=== PATIENT | male | born 1985 | race Caucasian/White ===

== ENCOUNTER 2016-08-02 12:49 | Outpatient (CLI) | payer MEDICAID | END 2016-08-02 12:50 | disposition home or self-care (01) | DX: M25.473 Effusion, unspecified ankle (principal) ==

== ENCOUNTER 2016-08-02 14:25 | Outpatient (CLI) | payer MEDICAID | END 2016-08-02 14:26 | disposition home or self-care (01) | DX: M25.471 Effusion, right ankle (principal) ==

== ENCOUNTER 2016-08-19 21:07 | Outpatient (CLI) | payer MEDICAID | END 2016-08-19 21:08 | disposition EMS.NT | DX: R56.9 Unspecified convulsions (principal); S00.81XA Abrasion of other part of head, initial encounter ==

== ENCOUNTER 2016-08-19 22:06 | Emergency (ER) | payer MEDICAID ==
[2016-08-20] MEDS ORDERED: IPRATROPIUM/ALBUTEROL 3 ML NEB INH STA (00:05)
[2016-08-20] MEDS ORDERED: DEXAMETHASONE 10 MG/ML VIAL PO STA (00:05)
[2016-08-20] MEDS ORDERED: CHERRY SYRUP 10 ML UDC PO ONE (00:17)
[2016-08-20] MEDS ORDERED: DEXAMETHASONE 10 MG/ML VIAL ONE (00:17)
== END 2016-08-20 00:34 | disposition home or self-care (01) ==
DX: S01.81XA Laceration without foreign body of other part of head, initial encounter (principal); W18.39XA Other fall on same level, initial encounter; Y92.019 Unspecified place in single-family (private) house as the place of occurrence of the external cause; G40.909 Epilepsy, unspecified, not intractable, without status epilepticus; H66.002 Acute suppurative otitis media without spontaneous rupture of ear drum, left ear; R62.50 Unspecified lack of expected normal physiological development in childhood
CPT/HCPCS: 12013; 99282; 99283; 99284; A9270

== ENCOUNTER 2016-08-20 09:44 | Emergency (ER) | payer MEDICAID ==
[2016-08-20] MEDS ORDERED: LORazepam 0.5 MG TABLET PO STA (10:01)
[2016-08-20] MEDS ORDERED: LORazepam 0.5 MG TABLET ONE (10:03)
== END 2016-08-20 11:10 | disposition home or self-care (01) ==
DX: S01.81XA Laceration without foreign body of other part of head, initial encounter (principal); W18.39XA Other fall on same level, initial encounter

== ENCOUNTER 2016-09-02 14:45 | Outpatient (CLI) | payer MEDICAID | END 2016-09-02 14:46 | disposition home or self-care (01) | DX: M25.473 Effusion, unspecified ankle (principal) ==

== ENCOUNTER 2016-12-13 05:45 | Day surgery (SDC) | payer MEDICAID ==
[2016-12-13] MEDS ORDERED: ceFAZolin 2 GM/50 ML 50 ML IV ONE (06:27)
[2016-12-13] MEDS ORDERED: LACTATED RINGERS 1,000 ML IV ONE (06:32)
[2016-12-13] MEDS ORDERED: MIDAZOLAM 10 MG/5 ML UDC PO STA (07:44)
[2016-12-13] MEDS ORDERED: BUPIVACAINE 0.5% PF 30 ML VIAL INFIL ONE ×2 (08:07)
[2016-12-13] MEDS ORDERED: ePHEDrine 50 MG/ML VIAL IVP ONE (08:40)
[2016-12-13] MEDS ORDERED: LIDOCAINE-MPF 2% 5 ML VIAL IM ONE (08:40)
[2016-12-13] MEDS ORDERED: fentaNYL 100 MCG/2 ML VIAL IVP ONE (08:40)
[2016-12-13] MEDS ORDERED: PROPOFOL 200 MG/20 ML VIAL IVP ONE (08:40)
[2016-12-13] MEDS ORDERED: ONDANSETRON 4 MG/2 ML VIAL IVP ONE (08:40)
[2016-12-13] MEDS ORDERED: NEOSTIGMINE 1 MG/1 ML 10 ML MDV IVP ONE (08:40)
[2016-12-13] MEDS ORDERED: ROCURONIUM 50 MG/5 ML VIAL IVP ONE (08:40)
[2016-12-13] MEDS ORDERED: GLYCOPYRROLATE 1 MG/5 ML VIAL IVP ONE (08:40)
[2016-12-13 10:02] VITALS: BP 121/82
--- NOTE | 2016-12-14 07:51 | OPERATIVE REPORT ---
DATE OF SURGERY: 12/13/2016 00:00:00 PREOPERATIVE DIAGNOSIS: Perianal mass. POSTOPERATIVE DIAGNOSIS: Perianal mass. NAME OF PROCEDURE: Excision perianal mass. 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 The mass was noted to be located in the 12-o'clock position. The patient was subseque ntly scheduled for an elective excision of the perianal mass. FINDINGS: After obtaining informed consent from the patient's electrical fitter, as the patient was unable t o provide consent for himself, he was brought into the operating room and intubated by Anesthesia. H e was then positioned in the prone position, 2 grams of Ancef were administered, he was then prepped and draped in the usual sterile fashion, and a timeout was taken according to protocol. The perianal mass was noted to be in the 12-o'clock position, just above the gluteal cleft. It was noted to be a pproximately 1.5 x 1 cm in dimension. It was soft and nonfluctuant and nonerythematous. An elliptical incision was created around the mass and deepened down to the presacral fascia. The en tire cyst was completely removed. The area was then palpated for any residual tissue, and an additio nal small amount of tissue was excised off the presacral fascia. After ensuring complete excision of the mass, the cavity was irrigated, hemostasis was achieved with electrocautery. The incision was t hen closed with 3-0 Vicryl in the subcutaneous tissue and 4-0 Vicryl for the skin. Mastisol and Ster i-Strips were applied. A dry dressing was then applied. The patient was extubated and taken to the recovery room in stable condition. ESTIMATED BLOOD LOSS: None. SPECIMENS: Perianal mass. COMPLICATIONS: None. JOB #: [id number] [id number] JOB #:[id number]
== END 2016-12-13 05:46 | disposition home or self-care (01) ==
LOC: SDS 05:45
PROVIDERS: ATTEND Surgery
PROC: 0JB90ZZ Excision of Buttock Subcutaneous Tissue and Fascia, Open Approach (ICD-10-PCS; principal; 2016-12-13 07:30)
DX: K62.9 Disease of anus and rectum, unspecified (principal); G40.909 Epilepsy, unspecified, not intractable, without status epilepticus; F84.9 Pervasive developmental disorder, unspecified; J30.2 Other seasonal allergic rhinitis
CPT/HCPCS: 46922; A9270; J0690; J7120; 88305

== ENCOUNTER 2017-01-07 13:37 | Outpatient (CLI) | payer MEDICAID ==
--- NOTE | 2017-01-07 15:27 | XRAY Report ---
THREE-VIEW RIGHT ANKLE: 01/07/2017 CLINICAL INDICATION: Effusion. COMPARISON: 09/02/2016 FINDINGS: AP, lateral, oblique views of the right ankle demonstrate a moderate joint effusion. Late ral soft tissue swelling persists. A tiny avulsion fragment is now seen adjacent to the fibula. IMPRESSION: TINY FIBULAR AVULSION FRACTURE. SOFT TISSUE SWELLING AND EFFUSION. JOB #: [id number] EXT JOB #:[id number]
== END 2017-01-07 13:38 | disposition home or self-care (01) ==
LOC: DI.N 13:37
PROVIDERS: ATTEND Physician Assistant
DX: M25.471 Effusion, right ankle (principal); S82.831A Other fracture of upper and lower end of right fibula, initial encounter for closed fracture

== ENCOUNTER 2017-01-11 06:33 | Day surgery (SDC) | payer MEDICAID ==
[2017-01-11] MEDS ORDERED: ePHEDrine 50 MG/ML AMP IVP ONE (07:56)
[2017-01-11] MEDS ORDERED: ONDANSETRON 4 MG/2 ML VIAL IVP ONE (07:56)
[2017-01-11] MEDS ORDERED: KETOROLAC 30 MG/ML VIAL IVP ONE (07:56)
[2017-01-11] MEDS ORDERED: PHENYLEPHRINE 10 MG/ML VIAL IV ONE (07:56)
[2017-01-11] MEDS ORDERED: MIDAZOLAM 10 MG/5 ML UDC PO ONE (08:00)
[2017-01-11] MEDS ORDERED: LACTATED RINGERS 1,000 ML IV ONE ×2 (08:03→09:00)
[2017-01-11] MEDS ORDERED: BUPIVACAINE 0.5%-EPI 1:200000 PF 30 ML VIAL SUBQ ONE (08:22)
[2017-01-11 09:33] VITALS: BP 102/85
--- NOTE | 2017-01-11 22:27 | OPERATIVE REPORT ---
DATE OF SURGERY: 01/11/2017 00:00:00 PREOPERATIVE DIAGNOSIS: Nonhealing wound, buttocks. POSTOPERATIVE DIAGNOSIS: Nonhealing wound, buttocks. PROCEDURE: Incision, drainage, and debridement of nonhealing wound, buttocks. OPERATING SURGEON: Mac Teran MD ANESTHESIA: General mask anesthesia. INDICATION FOR PROCEDURE: Patient is a 31-year-old male who underwent excision of a fibrous tissue i n the cleft of the buttocks approximately 4 weeks ago. He is now having drainage. The area is swollen. There is no erythema, but infection cannot be ruled out. FINDINGS AT PROCEDURE: Patient had a nonhealing wound in the buttocks with debris and serous fluid i n the center of the wound. There appeared to be no purulent fluid. Cultures were sent. PROCEDURE: Informed consent was obtained from his power of legal department manager. Patient was then taken to the operating room, and general mask anesthesia was administered. The patient was then placed in a right lateral decubitus position. The patient's buttocks were then prepped and draped in the usual steril e fashion. The skin overlying the affected area was then injected with 0.25% Marcaine. An incision was then made through the previous incision that was used to excise the fibrous nodule. The incision was then deepened down to the cavity. There was debris and clear fluid encountered, whi ch was sent for Gram stain culture and sensitivity. The debris was then removed, along with any nonv iable tissue being debrided. The incision measured approximately 4 cm. Hemostasis was obtained usin g electrocautery. The wound was then packed with a iodoform 1/4-inch gauze. A dry dressing was appl ied. Patient was then placed in a supine position, awakened, and taken from the procedure room in st able condition. ESTIMATED BLOOD LOSS: Minimal. COMPLICATIONS: None. CONDITION OF THE PATIENT AT END OF PROCEDURE: Stable. SPECIMENS: Fluid for Gram stain culture and sensitivity. JOB #: [id number] EXT JOB #:[id number]
== END 2017-01-11 06:34 | disposition home or self-care (01) ==
LOC: SDS 06:33
PROVIDERS: ATTEND Surgery
PROC: 0JD90ZZ Extraction of Buttock Subcutaneous Tissue and Fascia, Open Approach (ICD-10-PCS; principal; 2017-01-11 07:30)
DX: T81.89XA Other complications of procedures, not elsewhere classified, initial encounter (principal); Y83.8 Other surgical procedures as the cause of abnormal reaction of the patient, or of later complication, without mention of misadventure at the time of the procedure
CPT/HCPCS: 11042; 87070; 87077; 87181; 87205; A9270; J7120

== ENCOUNTER 2017-01-18 08:00 | Outpatient (CLI) | payer MEDICAID | END 2017-01-18 08:01 | disposition home or self-care (01) | LOC: LAB.N 08:00 | PROVIDERS: ATTEND Family Medicine | DX: G40.909 Epilepsy, unspecified, not intractable, without status epilepticus (principal) | CPT/HCPCS: 36415; 80156 ==

== ENCOUNTER 2017-01-19 18:44 | Outpatient (CLI) | payer MEDICAID | END 2017-01-19 18:45 | disposition EMS.NT | LOC: EMS 18:44 | PROVIDERS: ATTEND Surgery | DX: S01.91XA Laceration without foreign body of unspecified part of head, initial encounter (principal) ==

== ENCOUNTER 2017-01-26 11:12 | Outpatient (CLI) | payer MEDICAID ==
--- NOTE | 2017-01-26 13:06 | XRAY Report ---
THREE VIEW RIGHT ANKLE: 01/26/2017 CLINICAL INDICATION: Fracture followup. FINDINGS: AP, lateral, and oblique views of the right ankle are compared to previous films of 2016. The fibular avulsion fracture appears stable. Ankle joint effusion is decreasing. No new fracture is appreciated. IMPRESSION: STABLE APPEARANCE OF FIBULAR AVULSION FRACTURE. DECREASE IN JOINT EFFUSION. JOB #: [id number] EXT JOB #:[id number]
== END 2017-01-26 11:13 | disposition home or self-care (01) ==
LOC: DI.N 11:12
PROVIDERS: ATTEND Physician Assistant
DX: S82.831D Other fracture of upper and lower end of right fibula, subsequent encounter for closed fracture with routine healing (principal)

== ENCOUNTER 2017-07-07 08:00 | Outpatient (CLI) | payer MEDICAID ==
[2017-07-07 12:45] LABS: BASOPHILS % (AUTO) 1.1 %; EOSINOPHILS # (AUTO) 0.1 10^3/uL (0.0-0.7); EOSINOPHILS % (AUTO) 3.3 %; HGB - HEMOGLOBIN 13.6 g/dL (14.0-18.0); LYMPHOCYTES # (AUTO) 1.5 10^3/uL (1.5-3.5); LYMPHOCYTES % (AUTO) 38.7 %; MEAN CORPUSCULAR HEMOGLOBIN 32.4 pg (27.0-31.0); MEAN CORPUSCULAR HGB CONC 33.5 g/dL (32.0-36.0); MEAN CORPUSCULAR VOLUME 96.6 fL (80.0-94.0); MEAN PLATELET VOLUME 9.6 fL (7.4-11.4); MONOCYTES # (AUTO) 0.3 10^3/uL (0.0-1.0); MONOCYTES % (AUTO) 7.2 %; NEUTROPHILS # (AUTO) 1.9 10^3/uL (1.5-6.6); NEUTROPHILS % (AUTO) 49.7 %; PLT - PLATELET COUNT 147 10^3/uL (130-450); RED BLOOD COUNT 4.21 10^6/uL (4.70-6.10); RED CELL DISTRIBUTION WIDTH 12.9 % (12.0-15.0); WHITE BLOOD COUNT 3.8 x10^3/uL (4.8-10.8)
[2017-07-07 13:42] LABS: ALBUMIN 4.6 g/dL (3.2-5.5); ALBUMIN/GLOBULIN RATIO 1.6 (1.0-2.2); ALKALINE PHOSPHATASE 84 IU/L (42-121); ALT ALANINE AMINOTRANSFERASE 40 IU/L (10-60); AST ASPARTATE AMINOTRANSFERASE 32 IU/L (10-42); BILIRUBIN,TOTAL 0.4 mg/dL (0.2-1.0); BUN - BLOOD UREA NITROGEN 14 mg/dL (6-20); CALCIUM 9.3 mg/dL (8.5-10.3); CARBAMAZEPINE (TEGRETOL) 6.5 ug/mL; CARBON DIOXIDE - CO2 27 mmol/L (21-32); CHLORIDE 104 mmol/L (101-111); CHOL/HDL RATIO 2.7 (<5.0); CHOLESTEROL 132 mg/dL; CREATININE 0.8 mg/dL (0.6-1.2); GFR - MDRD 114 (>89); GLUCOSE 81 mg/dL (70-100); HDL CHOLESTEROL 49 mg/dL; LDL CHOLESTEROL,CALCULATED 70 mg/dL; LDL/HDL RATIO 1.4 (<3.6); SODIUM 136 mmol/L (135-145); TOTAL PROTEIN 7.4 g/dL (6.7-8.2); VLDL CHOLESTEROL 13 mg/dL
== END 2017-07-07 08:01 | disposition home or self-care (01) ==
LOC: LAB.N 08:00
PROVIDERS: ATTEND Family Medicine
DX: R56.9 Unspecified convulsions (principal); Z51.81 Encounter for therapeutic drug level monitoring
CPT/HCPCS: 36415; 80053; 80061; 80156; 83721; 85025

== ENCOUNTER 2017-11-28 08:00 | Outpatient (CLI) | END 2017-11-28 08:01 | disposition home or self-care (01) ==

== ENCOUNTER 2018-01-05 23:53 | Outpatient (CLI) | payer MEDICAID ==
[2018-01-05 18:51] LABS: BASOPHILS % (AUTO) 0.2 %; EOSINOPHILS # (AUTO) 0.1 10^3/uL (0.0-0.7); EOSINOPHILS % (AUTO) 1.9 %; HGB - HEMOGLOBIN 13.7 g/dL (14.0-18.0); LYMPHOCYTES # (AUTO) 1.6 10^3/uL (1.5-3.5); LYMPHOCYTES % (AUTO) 33.3 %; MEAN CORPUSCULAR HEMOGLOBIN 32.5 pg (27.0-31.0); MEAN CORPUSCULAR HGB CONC 34.4 g/dL (32.0-36.0); MEAN CORPUSCULAR VOLUME 94.5 fL (80.0-94.0); MEAN PLATELET VOLUME 9.2 fL (7.4-11.4); MONOCYTES # (AUTO) 0.4 10^3/uL (0.0-1.0); MONOCYTES % (AUTO) 9.2 %; NEUTROPHILS # (AUTO) 2.6 10^3/uL (1.5-6.6); NEUTROPHILS % (AUTO) 55.4 %; PLT - PLATELET COUNT 151 10^3/uL (130-450); RED BLOOD COUNT 4.21 10^6/uL (4.70-6.10); RED CELL DISTRIBUTION WIDTH 12.6 % (12.0-15.0); WHITE BLOOD COUNT 4.8 x10^3/uL (4.8-10.8)
[2018-01-05 19:01] LABS: ALBUMIN 4.4 g/dL (3.2-5.5); ALBUMIN/GLOBULIN RATIO 1.4 (1.0-2.2); ALKALINE PHOSPHATASE 103 IU/L (42-121); ALT ALANINE AMINOTRANSFERASE 27 IU/L (10-60); AST ASPARTATE AMINOTRANSFERASE 25 IU/L (10-42); BILIRUBIN,TOTAL 0.6 mg/dL (0.2-1.0); BUN - BLOOD UREA NITROGEN 15 mg/dL (6-20); CALCIUM 9.5 mg/dL (8.5-10.3); CARBAMAZEPINE (TEGRETOL) 8.9 ug/mL; CARBON DIOXIDE - CO2 30 mmol/L (21-32); CHLORIDE 102 mmol/L (101-111); CREATININE 0.7 mg/dL (0.6-1.2); GFR - MDRD 132 (>89); GLUCOSE 83 mg/dL (70-100); SODIUM 139 mmol/L (135-145); TOTAL PROTEIN 7.6 g/dL (6.7-8.2)
== END 2018-01-05 23:54 | disposition home or self-care (01) ==
LOC: LAB.N 23:53
PROVIDERS: ATTEND Family Medicine
DX: Z51.81 Encounter for therapeutic drug level monitoring (principal); Z79.899 Other long term (current) drug therapy; G40.909 Epilepsy, unspecified, not intractable, without status epilepticus; F84.0 Autistic disorder
CPT/HCPCS: 36415; 80050; 80156

== ENCOUNTER 2018-01-14 15:02 | Emergency (ER) | payer MEDICAID ==
[2018-01-14] MEDS ORDERED: DEXAMETHASONE 10 MG/ML VIAL PO STA (15:37)
--- NOTE | 2018-01-14 15:41 | ED Physician Documentation ---
PD HPI HEAD INJURY - Stated complaint Stated Complaint: HEAD LAC - Chief complaint Chief Complaint: Laceration - History obtained from History obtained from: Caregiver - History of Present Illness Mechanism of head injury: Blow Where head injury occurred: Home Timing - onset: Today Location of injury: Left, Front Quality of pain: Pain Associated symptoms: No: LOC, AMS Symptoms improve with: Rest Symptoms worsen with: Palpation, Movement Contributing factors: No: Anticoagulated Similar symptoms before: Diagnosis (SIB ( self injurious behavior)) Recently seen: Not recently seen - Additional information Additional information: 32-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 He will began to bang his head against a table and when this was noted his helmet was placed on. He continued to bang this and began banging it lower than the helmet and he was able to lacerate a portion of his forehead. No LOC. Review of Systems Constitutional: denies: Fever Eyes: denies: Decreased vision Ears: denies: Ear pain Nose: reports: Congestion Respiratory: denies: Cough GI: denies: Vomiting, Diarrhea Musculoskeletal: denies: Neck pain Neurologic: reports: Difficulty speaking. denies: Generalized weakness, Focal weakness, Numbness PD PAST MEDICAL HISTORY - Past Medical History Past Medical History: Yes Cardiovascular: None Respiratory: None Endocrine/Autoimmune: None GI: Other : None HEENT: None Psych: Other Musculoskeletal: None Derm: None Other Past Medical History: Self harm disorder - Past Surgical History Past Surgical History: No - Present Medications Home Medications: Ambulatory Orders Medication Instructions Recorded Confirmed Fluticasone [Flonase] 1 spray TAI DAILY 11/10/13 01/11/17 Guar Gum [Benefiber] 1 tbs PO DAILY 11/10/13 01/11/17 Multivit with Iron-Minerals 1 tab PO DAILY 11/10/13 01/11/17 [Multilex] QUEtiapine [SEROquel] 150 mg PO DAILY 11/10/13 01/11/17 carBAMazepine [TEGretol] 200 mg PO QPM 11/10/13 01/11/17 carBAMazepine [TEGretol] 300 mg PO DAILY 11/10/13 01/11/17 clonazePAM [Klonopin] 0.5 mg PO BID 11/10/13 01/11/17 Azithromycin [Zithromax] 250 mg PO DAILY #6 tablet 01/14/18 - Allergies Allergies/Adverse Reactions: Allergies Allergy/AdvReac Type Severity Reaction Status Date / Time No Known Drug Allergies Allergy Verified 01/14/18 15:13 - Social History Does the pt smoke?: No Smoking Status: Never smoker Does the pt drink ETOH?: No Does the pt have substance abuse?: No - Immunizations Immunizations are current?: Yes - POLST Patient has POLST: No PD ED PE NORMAL - Vitals Vital signs reviewed: Yes (hypertensive mild ) - General General: Well developed/nourished, Other (minimally verbal 32 y/o male with dense precision instrument maker tone and swelling to the forehead over the eyebrows bilaterally and worse on the left. There is a superficial laceration to the forehead above the left eyebrow and a lot of scars to the area. ) - HEENT HEENT: PERRL, EOMI, Other (swelling and evidence of multiple prior lacertions to the forehead with a new 2cm superficial lac above the left eyebrow. The left TM is inflamed with distortion of the landmarks and the right is impacted with cerumen. ) - Neck Neck: Supple, no meningeal sign, No bony TTP - Cardiac Cardiac: RRR, No murmur - Respiratory Respiratory: No respiratory distress - Derm Derm: Normal color, Warm and dry - Extremities Extremities: No deformity, No edema - Neuro Neuro: No motor deficit, No sensory deficit Eye Opening: Spontaneous Motor: Obeys Commands Verbal: Incomprehensible GCS Score: 12 - Psych Psych: Normal mood, Normal affect Results - Vitals Vitals: Vital Signs - 24 hr 01/14/18 15:10 Temperature 36.5 C Heart Rate 84 Respiratory 20 Rate Blood Pressure 128/81 H O2 Saturation 97 Oxygen O2 Source Room air Procedures - Laceration (location) left eyebrow Length in cm: 2 Wound type: Stellate, Clean Neurovascular status: Sensory intact, Motor intact Wound Preparation: Hibiclens, Wound explored, To the base Skin layer closure: Dermabond Other: Patient tolerated well, No complications, Neurovascular intact, Tetanus UTD PD MEDICAL DECISION MAKING - ED course Complexity details: reviewed old records, re-evaluated patient, considered differential, d/w family ED course: 32-year-old developmentally the delayed male with self-injurious behavior (SIB) has a superficial laceration to the left forehead above the left eyebrow. This is closed with Dermabond and the patient tolerates this well. On exam today he does have otitis media in the left middle ear and he is administered dexamethasone 10 mg orally and we will place him on a course of azithromycin. I suspect this infection may be the trigger for his SIB today. - Sepsis Event Vital Signs: Vital Signs - 24 hr 01/14/18 15:10 Temperature 36.5 C Heart Rate 84 Respiratory 20 Rate Blood Pressure 128/81 H O2 Saturation 97 Oxygen O2 Source Room air Departure - Departure Disposition: 01 Home, Self Care Clinical Impression: Forehead laceration Qualifiers: Encounter type: initial encounter Qualified Code(s): S01.81XA - Laceration without foreign body of other part of head, initial encounter Otitis media Qualifiers: Otitis media type: suppurative Chronicity: acute Laterality: left Recurrence: not specified as recurrent Spontaneous tympanic membrane rupture: without spontaneous rupture Qualified Code(s): H66.002 - Acute suppurative otitis media without spontaneous rupture of ear drum, left ear Condition: Stable Instructions: ED Otitis Media Acute Adult, ED Laceration Facial Skin Glue Follow-Up: [facility] [Provider Group] Prescriptions: Azithromycin [Zithromax] 250 mg PO DAILY #6 tablet
[2018-01-14 16:32] VITALS: BP 119/90
== END 2018-01-14 16:30 | disposition home or self-care (01) ==
LOC: ED 15:02
DX: S01.81XA Laceration without foreign body of other part of head, initial encounter (principal); H66.002 Acute suppurative otitis media without spontaneous rupture of ear drum, left ear; F84.0 Autistic disorder; Z91.5 Personal history of self-harm; X79.XXXA Intentional self-harm by blunt object, initial encounter; Y92.009 Unspecified place in unspecified non-institutional (private) residence as the place of occurrence of the external cause
CPT/HCPCS: 12011; 99283

== ENCOUNTER 2018-05-31 13:24 | Outpatient (CLI) | payer MEDICAID | END 2018-05-31 13:25 | disposition EMS.NT | LOC: EMS 13:24 | PROVIDERS: ATTEND Surgery | DX: S01.01XA Laceration without foreign body of scalp, initial encounter (principal); R46.89 Other symptoms and signs involving appearance and behavior; W22.8XXA Striking against or struck by other objects, initial encounter; Y92.480 Sidewalk as the place of occurrence of the external cause ==

== ENCOUNTER 2018-06-23 16:21 | Outpatient (CLI) | payer MEDICAID | END 2018-06-23 16:22 | disposition critical access hospital (66) | LOC: EMS 16:21 | PROVIDERS: ATTEND Surgery | DX: R56.9 Unspecified convulsions (principal) | CPT/HCPCS: A0425; A0429; A0999 ==

== ENCOUNTER 2018-06-23 16:40 | Emergency (ER) | payer MEDICAID ==
[2018-06-23] MEDS ORDERED: LORazepam 2 MG/ML VIAL IVP STA (16:55)
--- NOTE | 2018-06-23 18:37 | ED Physician Documentation ---
PD HPI SEIZURE - Stated complaint Stated Complaint: SEIZURES - Chief complaint Chief Complaint: Neuro - Additional information Additional information: 32-year-old male with a history of a seizure disorder was sent in from his care facility for a seizure. The patient normally has seizures daily and today had more than normal. No reports of fevers or trauma. The history is limited secondary to the patient's cognitive impairment. Review of Systems Unable to obtain: Other (Cognitive impairment) Constitutional: reports: Fever PD PAST MEDICAL HISTORY - Past Medical History Past Medical History: Yes Cardiovascular: None Respiratory: None Neuro: Head injury, Seizure disorder, Other Endocrine/Autoimmune: None GI: Hemorrhoids : None HEENT: None Psych: Anxiety, Other Musculoskeletal: None Derm: None - Past Surgical History Past Surgical History: Yes - Present Medications Home Medications: Ambulatory Orders Medication Instructions Recorded Confirmed Fluticasone [Flonase] 1 spray TAI DAILY 11/10/13 01/11/17 Guar Gum [Benefiber] 1 tbs PO DAILY 11/10/13 01/11/17 Multivit with Iron-Minerals 1 tab PO DAILY 11/10/13 01/11/17 [Multilex] QUEtiapine [SEROquel] 150 mg PO DAILY 11/10/13 01/11/17 carBAMazepine [TEGretol] 200 mg PO QPM 11/10/13 01/11/17 carBAMazepine [TEGretol] 300 mg PO DAILY 11/10/13 01/11/17 clonazePAM [Klonopin] 0.5 mg PO BID 11/10/13 01/11/17 Azithromycin [Zithromax] 250 mg PO DAILY #6 tablet 01/14/18 - Allergies Allergies/Adverse Reactions: Allergies Allergy/AdvReac Type Severity Reaction Status Date / Time No Known Drug Allergies Allergy Verified 06/23/18 16:46 - Social History Does the pt smoke?: No Smoking Status: Never smoker Does the pt drink ETOH?: No Does the pt have substance abuse?: No - Immunizations Immunizations are current?: Yes - POLST Patient has POLST: No PD ED PE NORMAL - General General: Other (The patient is alert and appears to be at his neurologic baseline and appears to be in no acute distress) - HEENT HEENT: PERRL, EOMI, Ears normal, Other (The patient is wearing a helmet) - Neck Neck: No bony TTP - Cardiac Cardiac: RRR - Respiratory Respiratory: No respiratory distress - Abdomen Abdomen: Soft, Non tender - Derm Derm: Normal color - Extremities Extremities: No deformity - Neuro Neuro: Other (The patient is alert and appears to be at his neurologic baseline) Results - Vitals Vitals: Vital Signs - 24 hr 06/23/18 06/23/18 06/23/18 16:46 18:40 19:13 Temperature 36.7 C 37.1 C Heart Rate 88 98 Respiratory 16 16 17 Rate Blood Pressure 123/84 H 104/66 O2 Saturation 96 100 06/23/18 19:49 Temperature Heart Rate 83 Respiratory 17 Rate Blood Pressure O2 Saturation Oxygen O2 Source Room air - Labs Labs: Laboratory Tests 06/23/18 06/23/18 06/23/18 18:45 18:45 18:45 WBC 7.6 RBC 4.15 L Hgb 13.1 L Hct 39.2 L MCV 94.5 H MCH 31.7 H MCHC 33.6 RDW 13.0 Plt Count 162 MPV 8.4 Neut # (Auto) 6.8 H Lymph # (Auto) 0.6 L [place] # (Auto) 0.2 Eos # (Auto) 0.0 Baso # (Auto) 0.0 Absolute Nucleated RBC 0.00 Nucleated RBC % 0.0 Sodium 136 Potassium 3.8 Chloride 103 Carbon Dioxide 26 Anion Gap 7.0 BUN 15 Creatinine 0.8 Estimated GFR (MDRD) 113 Glucose 118 H Calcium 9.5 Total Bilirubin 0.4 AST 28 ALT 31 Alkaline Phosphatase 103 Total Creatine Kinase 137 Total Protein 7.6 Albumin 4.6 Globulin 3.0 Albumin/Globulin Ratio 1.5 Lipase 30 Urine Color Urine Clarity Urine pH Ur Specific [place] Urine Protein Urine Glucose (UA) Urine Ketones Urine Occult Blood Urine Nitrite Urine Bilirubin Urine Urobilinogen Ur Leukocyte Esterase Urine RBC Urine WBC Ur Squamous Epith Cells Amorphous Sediment Urine Bacteria Ur Microscopic Review Urine Culture Comments Last Dose Date UNK Last Dose Time UNK Carbamazepine 6.9 06/23/18 19:00 WBC RBC Hgb Hct MCV MCH MCHC RDW Plt Count MPV Neut # (Auto) Lymph # (Auto) [place] # (Auto) Eos # (Auto) Baso # (Auto) Absolute Nucleated RBC Nucleated RBC % Sodium Potassium Chloride Carbon Dioxide Anion Gap BUN Creatinine Estimated GFR (MDRD) Glucose Calcium Total Bilirubin AST ALT Alkaline Phosphatase Total Creatine Kinase Total Protein Albumin Globulin Albumin/Globulin Ratio Lipase Urine Color YELLOW Urine Clarity CLOUDY Urine pH 8.0 H Ur Specific [place] 1.020 Urine Protein NEGATIVE Urine Glucose (UA) NEGATIVE Urine Ketones TRACE Urine Occult Blood NEGATIVE Urine Nitrite NEGATIVE Urine Bilirubin NEGATIVE Urine Urobilinogen 0.2 (NORMAL) Ur Leukocyte Esterase NEGATIVE Urine RBC 0-5 Urine WBC 6-10 H Ur Squamous Epith Cells NONE SEEN Amorphous Sediment Marked Urine Bacteria None Seen Ur Microscopic Review INDICATED Urine Culture Comments INDICATED Last Dose Date Last Dose Time Carbamazepine PD MEDICAL DECISION MAKING - ED course ED course: The patient appears at his neurologic baseline has had no further episodes of seizure in the emergency department. Currently, the patient appears appropriate for discharge and ongoing outpatient management. The patient has had an episode of vomiting emergency department but there is no evidence of dehydration that would require IV fluids at this time. I discussed warning signs and recommended returning to the emergency department for any worsening or any concerns per Departure - Departure Disposition: 01 Home, Self Care Clinical Impression: Seizure Condition: Good Instructions: First Aid Seizures Comments: Please follow-up with your primary care and neurologist as soon as possible Please return to the emergency department for any worsening or any concerns Discharge Date/Time: 06/23/18 19:50
[2018-06-23 18:41] VITALS: BP 104/66
[2018-06-23 18:56] LABS: BASOPHILS % (AUTO) 0.2 %; HGB - HEMOGLOBIN 13.1 g/dL (14.0-18.0); LYMPHOCYTES # (AUTO) 0.6 10^3/uL (1.5-3.5); LYMPHOCYTES % (AUTO) 7.4 %; MEAN CORPUSCULAR HEMOGLOBIN 31.7 pg (27.0-31.0); MEAN CORPUSCULAR HGB CONC 33.6 g/dL (32.0-36.0); MEAN CORPUSCULAR VOLUME 94.5 fL (80.0-94.0); MEAN PLATELET VOLUME 8.4 fL (7.4-11.4); MONOCYTES # (AUTO) 0.2 10^3/uL (0.0-1.0); MONOCYTES % (AUTO) 3.2 %; NEUTROPHILS # (AUTO) 6.8 10^3/uL (1.5-6.6); NEUTROPHILS % (AUTO) 89.2 %; PLT - PLATELET COUNT 162 10^3/uL (130-450); RED BLOOD COUNT 4.15 10^6/uL (4.70-6.10); WHITE BLOOD COUNT 7.6 x10^3/uL (4.8-10.8)
[2018-06-23 19:12] LABS: BILIRUBIN,URINE NEGATIVE (NEGATIVE); GLUCOSE, URINE (UA) NEGATIVE (NEGATIVE); KETONES,URINE (UA) TRACE mg/dL (NEGATIVE); LEUKOCYTE ESTERASE, URINE NEGATIVE (NEGATIVE); NITRITE,URINE NEGATIVE (NEGATIVE); OCCULT BLOOD,URINE NEGATIVE (NEGATIVE); PROTEIN,URINE NEGATIVE (NEGATIVE); UROBILINOGEN,URINE 0.2 (NORMAL) E.U./dL (NORMAL)
[2018-06-23 19:14] LABS: CLARITY,URINE CLOUDY (CLEAR)
[2018-06-23 19:24] LABS: RBC,URINE 0-5 /HPF (0-5)
[2018-06-23 19:25] LABS: AMORPHOUS SEDIMENT,UR Marked /LPF; BACTERIA,URINE None Seen /HPF (None Seen); SQUAMOUS EPITHELIAL CELL,UR NONE SEEN (<= Few)
[2018-06-23 19:26] LABS: CARBAMAZEPINE (TEGRETOL) 6.9 ug/mL
[2018-06-23 19:29] LABS: ALBUMIN 4.6 g/dL (3.2-5.5); ALBUMIN/GLOBULIN RATIO 1.5 (1.0-2.2); BILIRUBIN,TOTAL 0.4 mg/dL (0.2-1.0); CALCIUM 9.5 mg/dL (8.5-10.3); CREATININE 0.8 mg/dL (0.6-1.2); TOTAL PROTEIN 7.6 g/dL (6.7-8.2)
[2018-06-23] MEDS ORDERED: ONDANSETRON ODT 4 MG Prepack 2 TL PRN (20:09)
== END 2018-06-23 19:50 | disposition home or self-care (01) ==
LOC: EDUNIT# → ED 16:40
DX: G40.909 Epilepsy, unspecified, not intractable, without status epilepticus (principal)
CPT/HCPCS: 36415; 80053; 80156; 81001; 82550; 83690; 85025; 87086; 96374; 99283; J2060; 81003

== ENCOUNTER 2018-07-13 07:52 | Outpatient (CLI) | payer MEDICAID ==
[2018-07-13 13:13] LABS: BASOPHILS % (AUTO) 0.2 %; EOSINOPHILS # (AUTO) 0.1 10^3/uL (0.0-0.7); EOSINOPHILS % (AUTO) 1.2 %; LYMPHOCYTES # (AUTO) 1.6 10^3/uL (1.5-3.5); LYMPHOCYTES % (AUTO) 35.7 %; MEAN CORPUSCULAR HEMOGLOBIN 33.2 pg (27.0-31.0); MEAN CORPUSCULAR HGB CONC 34.3 g/dL (32.0-36.0); MEAN CORPUSCULAR VOLUME 96.6 fL (80.0-94.0); MEAN PLATELET VOLUME 9.1 fL (7.4-11.4); MONOCYTES # (AUTO) 0.4 10^3/uL (0.0-1.0); MONOCYTES % (AUTO) 7.9 %; NEUTROPHILS # (AUTO) 2.4 10^3/uL (1.5-6.6); PLT - PLATELET COUNT 156 10^3/uL (130-450); RED BLOOD COUNT 4.22 10^6/uL (4.70-6.10); RED CELL DISTRIBUTION WIDTH 13.2 % (12.0-15.0); WHITE BLOOD COUNT 4.4 x10^3/uL (4.8-10.8)
[2018-07-13 13:22] LABS: ALBUMIN 4.6 g/dL (3.2-5.5); ALBUMIN/GLOBULIN RATIO 1.5 (1.0-2.2); ALKALINE PHOSPHATASE 110 IU/L (42-121); ALT ALANINE AMINOTRANSFERASE 26 IU/L (10-60); AST ASPARTATE AMINOTRANSFERASE 25 IU/L (10-42); BILIRUBIN,TOTAL 0.2 mg/dL (0.2-1.0); BUN - BLOOD UREA NITROGEN 14 mg/dL (6-20); CALCIUM 9.5 mg/dL (8.5-10.3); CARBAMAZEPINE (TEGRETOL) 9.3 ug/mL; CARBON DIOXIDE - CO2 28 mmol/L (21-32); CHLORIDE 102 mmol/L (101-111); CREATININE 0.7 mg/dL (0.6-1.2); GFR - MDRD 132 (>89); GLUCOSE 72 mg/dL (70-100); SODIUM 138 mmol/L (135-145); TOTAL PROTEIN 7.7 g/dL (6.7-8.2)
== END 2018-07-13 23:59 | disposition home or self-care (01) ==
LOC: LAB.N 07:52
PROVIDERS: ATTEND Physician Assistant Medical
DX: Z51.81 Encounter for therapeutic drug level monitoring (principal); G40.909 Epilepsy, unspecified, not intractable, without status epilepticus
CPT/HCPCS: 36415; 80053; 80156; 85025

== ENCOUNTER 2018-08-14 07:21 | Outpatient (CLI) | payer MEDICAID ==
[2018-08-14 13:57] LABS: ALBUMIN 4.4 g/dL (3.2-5.5); ALBUMIN/GLOBULIN RATIO 1.3 (1.0-2.2); ALKALINE PHOSPHATASE 102 IU/L (42-121); ALT ALANINE AMINOTRANSFERASE 29 IU/L (10-60); AST ASPARTATE AMINOTRANSFERASE 25 IU/L (10-42); BILIRUBIN,TOTAL 0.7 mg/dL (0.2-1.0); BUN - BLOOD UREA NITROGEN 17 mg/dL (6-20); CALCIUM 9.8 mg/dL (8.5-10.3); CARBAMAZEPINE (TEGRETOL) 8.6 ug/mL; CARBON DIOXIDE - CO2 30 mmol/L (21-32); CHLORIDE 103 mmol/L (101-111); CREATININE 0.8 mg/dL (0.6-1.2); GFR - MDRD 113 (>89); GLUCOSE 87 mg/dL (70-100); SODIUM 141 mmol/L (135-145); TOTAL PROTEIN 7.9 g/dL (6.7-8.2)
[2018-08-14 13:59] LABS: BASOPHILS % (AUTO) 0.2 %; EOSINOPHILS # (AUTO) 0.1 10^3/uL (0.0-0.7); EOSINOPHILS % (AUTO) 1.9 %; HGB - HEMOGLOBIN 13.9 g/dL (14.0-18.0); LYMPHOCYTES # (AUTO) 1.8 10^3/uL (1.5-3.5); LYMPHOCYTES % (AUTO) 42.3 %; MEAN CORPUSCULAR HEMOGLOBIN 32.1 pg (27.0-31.0); MEAN CORPUSCULAR HGB CONC 33.6 g/dL (32.0-36.0); MEAN CORPUSCULAR VOLUME 95.5 fL (80.0-94.0); MEAN PLATELET VOLUME 9.4 fL (7.4-11.4); MONOCYTES # (AUTO) 0.4 10^3/uL (0.0-1.0); MONOCYTES % (AUTO) 9.6 %; NEUTROPHILS # (AUTO) 1.9 10^3/uL (1.5-6.6); PLT - PLATELET COUNT 172 10^3/uL (130-450); RED BLOOD COUNT 4.34 10^6/uL (4.70-6.10); RED CELL DISTRIBUTION WIDTH 12.5 % (12.0-15.0); WHITE BLOOD COUNT 4.2 x10^3/uL (4.8-10.8)
== END 2018-08-14 23:59 | disposition home or self-care (01) ==
LOC: LAB.N 07:21
PROVIDERS: ATTEND Physician Assistant Medical
DX: G40.909 Epilepsy, unspecified, not intractable, without status epilepticus (principal); Z51.81 Encounter for therapeutic drug level monitoring; D72.819 Decreased white blood cell count, unspecified
CPT/HCPCS: 36415; 80053; 80156; 85025

== ENCOUNTER 2018-09-25 08:00 | Outpatient (CLI) | payer MEDICAID ==
[2018-09-25 18:53] LABS: BASOPHILS % (AUTO) 0.4 %; EOSINOPHILS # (AUTO) 0.1 10^3/uL (0.0-0.7); EOSINOPHILS % (AUTO) 1.4 %; HGB - HEMOGLOBIN 13.2 g/dL (14.0-18.0); LYMPHOCYTES # (AUTO) 1.6 10^3/uL (1.5-3.5); LYMPHOCYTES % (AUTO) 19.3 %; MEAN CORPUSCULAR HEMOGLOBIN 32.2 pg (27.0-31.0); MEAN CORPUSCULAR HGB CONC 33.7 g/dL (32.0-36.0); MEAN CORPUSCULAR VOLUME 95.5 fL (80.0-94.0); MEAN PLATELET VOLUME 8.7 fL (7.4-11.4); MONOCYTES # (AUTO) 0.6 10^3/uL (0.0-1.0); NEUTROPHILS # (AUTO) 5.9 10^3/uL (1.5-6.6); NEUTROPHILS % (AUTO) 71.9 %; PLT - PLATELET COUNT 178 10^3/uL (130-450); RED BLOOD COUNT 4.11 10^6/uL (4.70-6.10); RED CELL DISTRIBUTION WIDTH 12.9 % (12.0-15.0); WHITE BLOOD COUNT 8.1 x10^3/uL (4.8-10.8)
== END 2018-09-25 23:59 | disposition home or self-care (01) ==
LOC: LAB.N 08:00
PROVIDERS: ATTEND Physician Assistant Medical
DX: D72.819 Decreased white blood cell count, unspecified (principal)
CPT/HCPCS: 36415; 85025

== ENCOUNTER 2018-11-20 08:17 | Emergency (ER) | payer MEDICAID ==
[2018-11-20 08:29] VITALS: BP 132/76
--- NOTE | 2018-11-20 08:36 | ED Physician Documentation ---
History of Present Illness - Stated complaint Stated Complaint: SEIZURE - Chief complaint Chief Complaint: Neuro - History obtained from History obtained from: Caregiver - History of Present Illness Timing: Prior to arrival - Additonal information Additional information: Patient is a 33-year-old male with history of head injury, developmental delay, and seizure disorder presenting with his power of commercial litigation attorney after he experienced a reported 3-minute seizure earlier today and a 5-second seizure yesterday. Patient's last seizure was June 2018. Patient is compliant with all seizure and other medications. Patient's POA is a previous stop member at his residential facility and is quite familiar with the patient and able to provide his history. No history is able to be obtained from the patient directly. Patient's POA reports that patient is now at baseline. He does not believe that patient has been experiencing a fever, cough, cold symptoms, abdominal pain, chest pain, difficulty breathing, urinary or stool changes recently. POA does not believe patient sustained any injuries today. Patient's seizure occurred prior to his morning medications being given.No other improving or worsening factors noted Review of Systems Constitutional: denies: Fever Cardiac: denies: Chest pain / pressure Respiratory: denies: Dyspnea GI: denies: Abdominal Pain : denies: Dysuria Neurologic: reports: Seizure PD PAST MEDICAL HISTORY - Past Medical History Cardiovascular: None Respiratory: None Neuro: Head injury, Seizure disorder, Other Endocrine/Autoimmune: None GI: Hemorrhoids : None HEENT: None Psych: Anxiety, Other Musculoskeletal: None Derm: None - Past Surgical History Past Surgical History: Yes - Present Medications Home Medications: Ambulatory Orders Medication Instructions Recorded Confirmed Fluticasone [Flonase] 1 spray TAI DAILY 11/10/13 01/11/17 Guar Gum [Benefiber] 1 tbs PO DAILY 11/10/13 01/11/17 QUEtiapine [SEROquel] 150 mg PO DAILY 11/10/13 01/11/17 RX: Multivit-Min/Ferrous Sulfate 1 tab PO DAILY 11/10/13 01/11/17 [Multilex Tablet] RX: carBAMazepine [TEGretol] 200 mg PO QPM 11/10/13 01/11/17 RX: carBAMazepine [TEGretol] 300 mg PO DAILY 11/10/13 01/11/17 RX: clonazePAM [Klonopin] 0.5 mg PO BID 11/10/13 01/11/17 Azithromycin [Zithromax] 250 mg PO DAILY #6 tablet 01/14/18 - Allergies Allergies/Adverse Reactions: Allergies Allergy/AdvReac Type Severity Reaction Status Date / Time No Known Drug Allergies Allergy Verified 11/20/18 08:29 - Social History Does the pt smoke?: No Smoking Status: Never smoker Does the pt drink ETOH?: No Does the pt have substance abuse?: No - Immunizations Immunizations are current?: Yes - POLST Patient has POLST: No PD ED PE NORMAL - Vitals Vital signs reviewed: Yes - General General: Other (Pleasantly sitting in bed. Wearing helmet. Interactive with staff.) - HEENT HEENT: Atraumatic, PERRL, EOMI, Moist mucous membranes, Pharynx benign, Other (No tongue biting) - Neck Neck: No bony TTP - Cardiac Cardiac: RRR, No murmur - Respiratory Respiratory: No respiratory distress, Clear bilaterally - Abdomen Abdomen: Soft, Non tender, Non distended - Back Back: No spinal TTP - Derm Derm: Normal color, Warm and dry, No rash - Extremities Extremities: No tenderness to palpate - Neuro Neuro: Other (Per his POA, patient is at his baseline mental and physical status.No new gross motor or sensory deficits noted.) - Psych Psych: Other (Pleasant mood) Results - Vitals Vitals: Vital Signs - 24 hr 11/20/18 08:27 Temperature 36.3 C L Heart Rate 94 Respiratory 20 Rate Blood Pressure 132/76 H O2 Saturation 100 Oxygen O2 Source Room air - Labs Labs: Laboratory Tests 11/20/18 11/20/18 11/20/18 08:56 08:56 08:56 WBC 3.8 L RBC 4.39 L Hgb 13.9 L Hct 41.3 L MCV 94.1 H MCH 31.6 H MCHC 33.6 RDW 12.6 Plt Count 153 MPV 8.2 Neut # (Auto) 2.4 Lymph # (Auto) 1.[address] [place] # (Auto) 0.2 Eos # (Auto) 0.1 Baso # (Auto) 0.0 Absolute Nucleated RBC 0.00 Nucleated RBC % 0.0 Sodium 140 Potassium 3.5 Chloride 103 Carbon Dioxide 26 Anion Gap 11.0 BUN 14 Creatinine 0.9 Estimated GFR (MDRD) 98 Glucose 93 Calcium 9.8 Total Bilirubin 0.6 AST 23 ALT 25 Alkaline Phosphatase 110 Total Protein 8.4 H Albumin 4.7 Globulin 3.7 Albumin/Globulin Ratio 1.3 Lipase 36 Urine Color Urine Clarity Urine pH Ur Specific [place] Urine Protein Urine Glucose (UA) Urine Ketones Urine Occult Blood Urine Nitrite Urine Bilirubin Urine Urobilinogen Ur Leukocyte Esterase Ur Microscopic Review Urine Culture Comments Last Dose Date UNKNOWN Last Dose Time UNKNOWN Carbamazepine 8.2 11/20/18 09:35 WBC RBC Hgb Hct MCV MCH MCHC RDW Plt Count MPV Neut # (Auto) Lymph # (Auto) [place] # (Auto) Eos # (Auto) Baso # (Auto) Absolute Nucleated RBC Nucleated RBC % Sodium Potassium Chloride Carbon Dioxide Anion Gap BUN Creatinine Estimated GFR (MDRD) Glucose Calcium Total Bilirubin AST ALT Alkaline Phosphatase Total Protein Albumin Globulin Albumin/Globulin Ratio Lipase Urine Color YELLOW Urine Clarity CLEAR Urine pH 6.5 Ur Specific [place] 1.010 Urine Protein NEGATIVE Urine Glucose (UA) NEGATIVE Urine Ketones NEGATIVE Urine Occult Blood NEGATIVE Urine Nitrite NEGATIVE Urine Bilirubin NEGATIVE Urine Urobilinogen 0.2 (NORMAL) Ur Leukocyte Esterase NEGATIVE Ur Microscopic Review NOT INDICATED Urine Culture Comments NOT INDICATED Last Dose Date Last Dose Time Carbamazepine PD MEDICAL DECISION MAKING - ED course Complexity details: reviewed results, re-evaluated patient, considered differential, d/w patient, d/w family ED course: Patient presenting with seizure activity. Patient has known seizure disorder and is compliant with his medications, although had not yet received his morning medications when he had a seizure earlier today. No history of trauma and none found on exam. Additionally, do not find Neurological changes from baseline. Have low suspicion for intracranial issues including thrombus, aneurysm, bleed, mass, complicated seizure or migraine. No signs of systemic illness. Patient continued to be monitored in the ED without return of seizure activity or other complications. Screening lab work and urinalysis obtained which returned relatively unremarkable. Did obtain carbamazepine level. At this time, do not feel patient requires imaging or other further testing. Feel that he is safe to discharge back to his facility with emphasis on continued medications, close follow-up with his primary care physician and neurologist, as well as strict return precautions. Patient's power of commercial litigation attorney understanding and comfortable with this discharge plan. Departure - Departure Disposition: 01 Home, Self Care Clinical Impression: Seizure Condition: Good Instructions: ED Seizure Recurrent Follow-Up: Miles Ornelas PA-C [Primary Care Provider] - Within 3 Days Comments: Please continue all home medications as previously instructed. Please call your primary care physician and neurologist later today to set up a follow-up appointment, hopefully for the next 2 to 3 days earlier this week. Return to ED sooner if you experience recurrent seizure, have worsening symptoms, or have other concerns. Discharge Date/Time: 11/20/18 09:59
[2018-11-20 09:03] LABS: BASOPHILS % (AUTO) 0.4 %; EOSINOPHILS # (AUTO) 0.1 10^3/uL (0.0-0.7); EOSINOPHILS % (AUTO) 1.9 %; HGB - HEMOGLOBIN 13.9 g/dL (14.0-18.0); LYMPHOCYTES # (AUTO) 1.1 10^3/uL (1.5-3.5); LYMPHOCYTES % (AUTO) 28.2 %; MEAN CORPUSCULAR HEMOGLOBIN 31.6 pg (27.0-31.0); MEAN CORPUSCULAR HGB CONC 33.6 g/dL (32.0-36.0); MEAN CORPUSCULAR VOLUME 94.1 fL (80.0-94.0); MEAN PLATELET VOLUME 8.2 fL (7.4-11.4); MONOCYTES # (AUTO) 0.2 10^3/uL (0.0-1.0); MONOCYTES % (AUTO) 6.6 %; NEUTROPHILS # (AUTO) 2.4 10^3/uL (1.5-6.6); NEUTROPHILS % (AUTO) 62.9 %; PLT - PLATELET COUNT 153 10^3/uL (130-450); RED BLOOD COUNT 4.39 10^6/uL (4.70-6.10); RED CELL DISTRIBUTION WIDTH 12.6 % (12.0-15.0); WHITE BLOOD COUNT 3.8 x10^3/uL (4.8-10.8)
[2018-11-20 09:17] LABS: ALBUMIN 4.7 g/dL (3.2-5.5); ALBUMIN/GLOBULIN RATIO 1.3 (1.0-2.2); BILIRUBIN,TOTAL 0.6 mg/dL (0.2-1.0); CALCIUM 9.8 mg/dL (8.5-10.3); CREATININE 0.9 mg/dL (0.6-1.2); TOTAL PROTEIN 8.4 g/dL (6.7-8.2)
[2018-11-20 09:23] LABS: CARBAMAZEPINE (TEGRETOL) 8.2 ug/mL
[2018-11-20 09:41] LABS: BILIRUBIN,URINE NEGATIVE (NEGATIVE); GLUCOSE, URINE (UA) NEGATIVE (NEGATIVE); KETONES,URINE (UA) NEGATIVE (NEGATIVE); LEUKOCYTE ESTERASE, URINE NEGATIVE (NEGATIVE); NITRITE,URINE NEGATIVE (NEGATIVE); OCCULT BLOOD,URINE NEGATIVE (NEGATIVE); PH,URINE 6.5 PH (5.0-7.5); PROTEIN,URINE NEGATIVE (NEGATIVE); UROBILINOGEN,URINE 0.2 (NORMAL) E.U./dL (NORMAL)
[2018-11-20 09:49] LABS: CLARITY,URINE CLEAR (CLEAR)
== END 2018-11-20 09:59 | disposition home or self-care (01) ==
LOC: ED 08:17
DX: G40.909 Epilepsy, unspecified, not intractable, without status epilepticus (principal)
CPT/HCPCS: 36415; 80053; 80156; 81001; 81003; 83690; 85025; 87086; 99283; 99284

== ENCOUNTER 2018-11-23 07:18 | Outpatient (CLI) | payer MEDICAID ==
[2018-11-23 12:11] LABS: BASOPHILS % (AUTO) 0.4 %; EOSINOPHILS # (AUTO) 0.1 10^3/uL (0.0-0.7); EOSINOPHILS % (AUTO) 2.7 %; HGB - HEMOGLOBIN 13.6 g/dL (14.0-18.0); LYMPHOCYTES # (AUTO) 1.9 10^3/uL (1.5-3.5); LYMPHOCYTES % (AUTO) 39.2 %; MEAN CORPUSCULAR HEMOGLOBIN 31.4 pg (27.0-31.0); MEAN CORPUSCULAR HGB CONC 32.5 g/dL (32.0-36.0); MEAN CORPUSCULAR VOLUME 96.5 fL (80.0-94.0); MEAN PLATELET VOLUME 11.5 fL (7.4-11.4); MONOCYTES # (AUTO) 0.4 10^3/uL (0.0-1.0); MONOCYTES % (AUTO) 7.8 %; NEUTROPHILS # (AUTO) 2.4 10^3/uL (1.5-6.6); NEUTROPHILS % (AUTO) 49.5 %; PLT - PLATELET COUNT 165 10^3/uL (130-450); RED BLOOD COUNT 4.33 10^6/uL (4.70-6.10); RED CELL DISTRIBUTION WIDTH 12.1 % (12.0-15.0); WHITE BLOOD COUNT 4.9 x10^3/uL (4.8-10.8)
[2018-11-23 12:27] LABS: ALBUMIN 4.5 g/dL (3.2-5.5); ALBUMIN/GLOBULIN RATIO 1.3 (1.0-2.2); ALKALINE PHOSPHATASE 109 IU/L (42-121); ALT ALANINE AMINOTRANSFERASE 23 IU/L (10-60); AST ASPARTATE AMINOTRANSFERASE 21 IU/L (10-42); BILIRUBIN,TOTAL 0.7 mg/dL (0.2-1.0); BUN - BLOOD UREA NITROGEN 16 mg/dL (6-20); CALCIUM 9.7 mg/dL (8.5-10.3); CARBAMAZEPINE (TEGRETOL) 8.1 ug/mL; CARBON DIOXIDE - CO2 24 mmol/L (21-32); CHLORIDE 102 mmol/L (101-111); CREATININE 0.8 mg/dL (0.6-1.2); GFR - MDRD 112 (>89); GLUCOSE 89 mg/dL (70-100); SODIUM 138 mmol/L (135-145); TOTAL PROTEIN 7.9 g/dL (6.7-8.2)
== END 2018-11-23 23:59 | disposition home or self-care (01) ==
LOC: LAB.N 07:18
PROVIDERS: ATTEND Psychiatry & Neurology Neurology
DX: Z51.81 Encounter for therapeutic drug level monitoring (principal); G40.109 Localization-related (focal) (partial) symptomatic epilepsy and epileptic syndromes with simple partial seizures, not intractable, without status epilepticus; E55.9 Vitamin D deficiency, unspecified
CPT/HCPCS: 36415; 80053; 80156; 82652; 85025

== ENCOUNTER 2019-01-04 12:48 | Emergency (ER) | payer MEDICAID ==
[2019-01-04 12:56] VITALS: BP 118/81
[2019-01-04] MEDS ORDERED: AMOXICILLIN 250 MG CAPSULE PO STA (13:20)
[2019-01-04] MEDS ORDERED: TETANUS/DIPHTHERIA/PERTUSSIS 0.5 ML SYRINGE IM ONE (13:21)
--- NOTE | 2019-01-04 13:23 | ED Physician Documentation ---
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 He had a cut lip. No evidence of seizure activity.) Review of Systems Unable to obtain: AMS PD PAST MEDICAL HISTORY - Past Medical History Cardiovascular: None Respiratory: None Neuro: Head injury, Seizure disorder, Other Endocrine/Autoimmune: None GI: Hemorrhoids : None HEENT: None Psych: Anxiety, Other Musculoskeletal: None Derm: None - Past Surgical History Past Surgical History: Yes - Present Medications Home Medications: Ambulatory Orders Medication Instructions Recorded Confirmed Fluticasone [Flonase] 1 spray TAI DAILY 11/10/13 01/11/17 Guar Gum [Benefiber] 1 tbs PO DAILY 11/10/13 01/11/17 Multivit-Min/Ferrous Sulfate 1 tab PO DAILY 11/10/13 01/11/17 [Multilex Tablet] QUEtiapine [SEROquel] 150 mg PO DAILY 11/10/13 01/11/17 carBAMazepine [TEGretol] 200 mg PO QPM 11/10/13 01/11/17 carBAMazepine [TEGretol] 300 mg PO DAILY 11/10/13 01/11/17 clonazePAM [Klonopin] 0.5 mg PO BID 11/10/13 01/11/17 Azithromycin [Zithromax] 250 mg PO DAILY #6 tablet 01/14/18 Amoxicillin 500 mg PO TID #20 capsule 01/04/19 - Allergies Allergies/Adverse Reactions: Allergies Allergy/AdvReac Type Severity Reaction Status Date / Time No Known Drug Allergies Allergy Verified 01/04/19 12:56 - Social History Does the pt smoke?: No Smoking Status: Never smoker Does the pt drink ETOH?: No Does the pt have substance abuse?: No - Immunizations Immunizations are current?: Yes - POLST Patient has POLST: No PD ED PE NORMAL - Vitals Vital signs reviewed: Yes - General General: Other (He is alert and follows simple commands. He is nonverbal which is his baseline. There is a small through and through laceration of the lower lip, the outside component is only about 5 mm and does not require suturing. No loose teeth. He is wearing a helmet which is his usual because of poor balance and seizures.) - HEENT HEENT: PERRL - Neck Neck: Supple, no meningeal sign, No bony TTP - Extremities Extremities: No deformity, No tenderness to palpate, Normal ROM s pain - Neuro Eye Opening: Spontaneous Motor: Obeys Commands Verbal: Inappropriate GCS Score: 13 Results - Vitals Vitals: Vital Signs - 24 hr 01/04/19 12:52 Temperature 36.1 C L Heart Rate 77 Respiratory 18 Rate Blood Pressure 118/81 H O2 Saturation 100 Oxygen O2 Source Room air - Rads (name of study) [facility] and [facility] Radiology: EMP read contemporaneously (NAD) PD MEDICAL DECISION MAKING - ED course ED course: He has a through and through laceration of the lower lip from a presumed unwitnessed fall. Per the caregiver there was no evidence of a seizure there is no real evidence of head injury otherwise given his baseline mental status we will perform head and cervical spine CTs. The laceration does not require suturing, only irrigation, wound care, and antibiotics given its nature which are done by the nurse. Departure - Departure Disposition: 01 Home, Self Care Clinical Impression: Laceration Fall Qualifiers: Encounter type: initial encounter Qualified Code(s): W19.XXXA - Unspecified fall, initial encounter Head injury Qualifiers: Encounter type: initial encounter Qualified Code(s): S09.90XA - Unspecified injury of head, initial encounter Condition: Good Record reviewed to determine appropriate education?: Yes Instructions: ED Head Injury Closed, ED Laceration Mouth Prescriptions: Amoxicillin 500 mg PO TID #20 capsule
[2019-01-04] MEDS ORDERED: BACITRACIN OINT TOP ONE (13:30)
--- NOTE | 2019-01-04 14:15 | CT Report ---
Reason: head inj Procedure Date: 01/04/2019 Accession Number: [id number] / [id number] Procedure: CT - HEAD WO CPT Code: FULL RESULT: EXAM: CT HEAD EXAM DATE: 01/04/2019 02:01 PM. CLINICAL HISTORY: Head inj. COMPARISON: HEAD W/O 05/31/2018 2:51 PM. TECHNIQUE: Multiaxial CT images were obtained from the foramen magnum to the vertex. Reformats: Sagittal and coronal. IV contrast: None. In accordance with CT protocol optimization, one or more of the following dose reduction techniques were utilized for this exam: automated exposure control, adjustment of mA and/or KV based on patient size, or use of iterative reconstructive technique. FINDINGS: Parenchyma: Again seen is a symmetric pattern of bilateral parietal and occipital lobe chronic encephalomalacia and volume loss. Negative for acute hemorrhage. There is no midline shift. Extraaxial Spaces: There is communication of the lateral ventricles with a large extra-axial CSF density fluid collection posteriorly consistent with chronic porencephaly. Ventricles: The contour of the lateral ventricles appears irregular but unchanged. Sinuses and Orbits: Imaged paranasal sinuses, orbits, and mastoids show no significant abnormality. Bones: No acute fracture. Other: None. IMPRESSION: 1. No acute intracranial hemorrhage or fracture. 2. 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 RADIA
--- NOTE | 2019-01-04 14:19 | CT Report ---
Reason: head inj Procedure Date: 01/04/2019 Accession Number: [id number] / [id number] Procedure: CT - CERVICAL SPINE WO CPT Code: FULL RESULT: EXAM: CT CERVICAL SPINE WITHOUT CONTRAST DATE: 01/04/2019 02:01 PM. HISTORY: Head inj. COMPARISONS: No prior cervical spine CT.. TECHNIQUE: Thin-section axial images were acquired of the cervical spine without contrast. Post-processing: Coronal and sagittal reformats. Other: None. In accordance with CT protocol optimization, one or more of the following dose reduction techniques were utilized for this exam: automated exposure control, adjustment of mA and/or KV based on patient size, or use of iterative reconstructive technique. FINDINGS: Alignment: No scoliosis or spondylolisthesis. Bones: No fracture or bone lesion. Interspace Levels/Facets: Disk height is maintained. Facet joints appear normal in alignment. No bony central spinal canal stenosis. Musculature: Normal. No fatty atrophy. Other: The paravertebral and prevertebral soft tissues are unremarkable. No apical pneumothorax. IMPRESSION: 1. Negative for fracture and subluxation of the cervical spine. RADIA
== END 2019-01-04 15:18 | disposition home or self-care (01) ==
LOC: ED 12:48
DX: S01.511A Laceration without foreign body of lip, initial encounter (principal); S09.90XA Unspecified injury of head, initial encounter; W18.30XA Fall on same level, unspecified, initial encounter; Y92.193 Bedroom in other specified residential institution as the place of occurrence of the external cause; Q04.6 Congenital cerebral cysts; G40.909 Epilepsy, unspecified, not intractable, without status epilepticus
CPT/HCPCS: 70450; 72125; 99281; 99284; A9270

== ENCOUNTER 2019-01-26 09:36 | Outpatient (CLI) | payer MEDICAID ==
[2019-01-26 10:23] LABS: THYROID STIMULATING HORMONE 1.57 uIU/mL (0.34-5.60)
[2019-01-26 10:34] LABS: FOLATE 22.51 ng/mL (5.90 - >24.8)
== END 2019-01-26 09:37 | disposition home or self-care (01) ==
LOC: LAB 09:36
PROVIDERS: ATTEND Psychiatry & Neurology Neurology
DX: R27.0 Ataxia, unspecified (principal)
CPT/HCPCS: 36415; 82140; 82607; 82746; 84443

== ENCOUNTER 2019-08-07 08:00 | Outpatient (CLI) | payer MEDICAID ==
[2019-08-07 12:27] LABS: BASOPHILS % (AUTO) 0.2 %; EOSINOPHILS # (AUTO) 0.1 10^3/uL (0.0-0.7); EOSINOPHILS % (AUTO) 0.9 %; HGB - HEMOGLOBIN 13.1 g/dL (14.0-18.0); LYMPHOCYTES # (AUTO) 1.8 10^3/uL (1.5-3.5); LYMPHOCYTES % (AUTO) 33.1 %; MEAN CORPUSCULAR HEMOGLOBIN 31.1 pg (27.0-31.0); MEAN CORPUSCULAR HGB CONC 32.8 g/dL (32.0-36.0); MEAN PLATELET VOLUME 11.3 fL (7.4-11.4); MONOCYTES # (AUTO) 0.3 10^3/uL (0.0-1.0); MONOCYTES % (AUTO) 6.3 %; NEUTROPHILS # (AUTO) 3.1 10^3/uL (1.5-6.6); NEUTROPHILS % (AUTO) 59.1 %; PLT - PLATELET COUNT 173 10^3/uL (130-450); RED BLOOD COUNT 4.21 10^6/uL (4.70-6.10); RED CELL DISTRIBUTION WIDTH 12.1 % (12.0-15.0); WHITE BLOOD COUNT 5.3 x10^3/uL (4.8-10.8)
[2019-08-07 12:44] LABS: ALBUMIN 4.7 g/dL (3.2-5.5); ALBUMIN/GLOBULIN RATIO 1.6 (1.0-2.2); ALKALINE PHOSPHATASE 80 IU/L (42-121); ALT ALANINE AMINOTRANSFERASE 26 IU/L (10-60); AST ASPARTATE AMINOTRANSFERASE 24 IU/L (10-42); BILIRUBIN,TOTAL 0.6 mg/dL (0.2-1.0); BUN - BLOOD UREA NITROGEN 17 mg/dL (6-20); CALCIUM 9.9 mg/dL (8.5-10.3); CARBAMAZEPINE (TEGRETOL) 9.1 ug/mL; CARBON DIOXIDE - CO2 27 mmol/L (21-32); CHLORIDE 105 mmol/L (101-111); CREATININE 0.9 mg/dL (0.6-1.2); GLUCOSE 88 mg/dL (70-100); SODIUM 140 mmol/L (135-145); TOTAL PROTEIN 7.6 g/dL (6.7-8.2)
== END 2019-08-07 23:59 ==
LOC: LAB.N 08:00
PROVIDERS: ATTEND Psychiatry & Neurology Neurology
DX: G40.909 Epilepsy, unspecified, not intractable, without status epilepticus (principal); Z51.81 Encounter for therapeutic drug level monitoring; Z79.01 Long term (current) use of anticoagulants
CPT/HCPCS: 36415; 80053; 80156; 85025

== ENCOUNTER 2019-09-21 04:43 | Outpatient (CLI) | payer MEDICAID | END 2019-09-21 04:44 | disposition EMS.NT | LOC: EMS 04:43 | PROVIDERS: ATTEND Surgery | DX: S01.01XA Laceration without foreign body of scalp, initial encounter (principal); W22.8XXA Striking against or struck by other objects, initial encounter; Y92.099 Unspecified place in other non-institutional residence as the place of occurrence of the external cause ==

== ENCOUNTER 2019-09-21 05:36 | Emergency (ER) | payer MEDICAID ==
--- NOTE | 2019-09-21 06:38 | ED Physician Documentation ---
History of Present Illness - Stated complaint Stated Complaint: SEIZURE - Chief complaint Chief Complaint: General - History obtained from History obtained from: Caregiver - Additonal information Additional information: Patient is brought to the emergency department by his POA after demonstrating an increased incidence of seizures last night. Patient's POA states that the seizures were typical for the patient and that he has a longstanding history of seizure disorder. He has not had any recent medication changes or dose changes. Family gave the patient first Valium and then Ativan, and called the medics. The patient became frustrated when the medics arrived, because they were unfamiliar people to the patientPatient is brought to the emergency department by his POA after demonstrating an increased incidence of seizures last night. Patient's POA states that the seizures were typical for the patient and that he has a longstanding history of seizure disorder. He has not had any recent m edication changes or dose changes. The patient became frustrated when the medics arrived, because they were unfamiliar people to the patient, and the patient banged his head on nearby objects, resulting in a laceration on the right side of his head. Patient's POA states this is fairly normal behavior for the patient when he gets frustrated. The patient has not had any fevers, chills, cough, or shortness of breath recently. No known chest pain. No vomiting or diarrhea. No abdominal pain.Patient normally wears a helmet because of his tendency to bang his head on things. POA states the patient recently had a CT scan of the brain, which showed some brain atrophy but otherwise, no other significant findings that POA knows of. Review of Systems Unable to obtain: Other (Severe developmental delay, unable to answer questions.) PD PAST MEDICAL HISTORY - Past Medical History Past Medical History: Yes Cardiovascular: None Respiratory: None Neuro: Head injury, Seizure disorder, Other Endocrine/Autoimmune: None GI: Hemorrhoids : None HEENT: None Psych: Anxiety, Other Musculoskeletal: None Derm: None Other Past Medical History: Mentally delayed - Past Surgical History Past Surgical History: Yes - Present Medications Home Medications: Ambulatory Orders Medication Instructions Recorded Confirmed Fluticasone [Flonase] 1 spray TAI DAILY 11/10/13 01/11/17 Guar Gum [Benefiber] 1 tbs PO DAILY 11/10/13 01/11/17 Multivit-Min/Ferrous Sulfate 1 tab PO DAILY 11/10/13 01/11/17 [Multilex Tablet] QUEtiapine [SEROquel] 150 mg PO DAILY 11/10/13 01/11/17 carBAMazepine [TEGretol] 200 mg PO QPM 11/10/13 01/11/17 carBAMazepine [TEGretol] 300 mg PO DAILY 11/10/13 01/11/17 clonazePAM [Klonopin] 0.5 mg PO BID 11/10/13 01/11/17 Azithromycin [Zithromax] 250 mg PO DAILY #6 tablet 01/14/18 Amoxicillin 500 mg PO TID #20 capsule 01/04/19 - Allergies Allergies/Adverse Reactions: Allergies Allergy/AdvReac Type Severity Reaction Status Date / Time No Known Drug Allergies Allergy Verified 09/21/19 05:40 - Social History Does the pt smoke?: No Smoking Status: Never smoker Does the pt drink ETOH?: No Does the pt have substance abuse?: No - Immunizations Immunizations are current?: Yes - POLST Patient has POLST: No PD ED PE NORMAL - Vitals Vital signs reviewed: Yes - General General: No acute distress, Well developed/nourished, Other (Patient is alert and verbalizes very little.) - HEENT HEENT: PERRL, EOMI, Moist mucous membranes, Other (Patient has a 3 cm laceration on the lateral aspect of his right scalp, over the parietal area. Bleeding is controlled. No foreign bodies.) - Neck Neck: Supple, no meningeal sign - Cardiac Cardiac: RRR, No murmur - Respiratory Respiratory: No respiratory distress, Clear bilaterally - Abdomen Abdomen: Soft, Non tender, Non distended - Derm Derm: Normal color, Warm and dry, No rash - Extremities Extremities: No deformity, No edema, No calf tenderness / cord - Neuro Neuro: instructional writer 2-12 intact, No motor deficit, Normal speech - Psych Psych: Normal mood, Normal affect Results - Vitals Vitals: Vital Signs - 24 hr 09/21/19 05:40 Temperature 37.7 C H Heart Rate 108 H Respiratory 18 Rate Blood Pressure 131/81 H O2 Saturation 97 Oxygen O2 Source Room air - Labs Labs: Laboratory Tests 09/21/19 09/21/19 06:32 06:32 WBC 4.0 L RBC 4.06 L Hgb 13.3 L Hct 39.3 L MCV 96.8 H MCH 32.8 H MCHC 33.8 RDW 11.8 L Plt Count 150 MPV 10.5 Neut # (Auto) 2.2 Lymph # (Auto) 1.4 L Castro # (Auto) 0.3 Eos # (Auto) 0.0 Baso # (Auto) 0.0 Absolute Nucleated RBC 0.00 Nucleated RBC % 0.0 Sodium 138 Potassium 3.9 Chloride 105 Carbon Dioxide 25 Anion Gap 8.0 BUN 16 Creatinine 0.8 Estimated GFR (MDRD) 112 Glucose 102 H Calcium 9.4 Total Bilirubin 0.3 AST 24 ALT 24 Alkaline Phosphatase 89 Total Protein 7.4 Albumin 4.4 Globulin 3.0 Albumin/Globulin Ratio 1.5 Lipase 35 Procedures - Laceration (location) scalp Length in cm: 3 Wound type: Linear Neurovascular status: Sensory intact, Vascular intact Skin layer closure: Dermabond Other: Patient tolerated well, No complications, Neurovascular intact, Dressing applied Complexity: Simple PD MEDICAL DECISION MAKING - ED course Complexity details: reviewed old records, reviewed results, re-evaluated patient, considered differential, d/w patient ED course: Patient overall appeared fairly well and was at baseline per POA. He was worked up for his increased seizure activity with CBC and CMP. Because the patient so frequently injures his head, and because he just had a CT 1 or 2 weeks ago, I did not feel he should have another CT scan of the head today. I discussed options for closure of the patient's laceration with the POA, and he stated he would prefer that we just use glue. He stated he was not worried about scarring and mainly, wanted to try to approximate the wound edges a little more so that the patient would bleed so much. I felt this was reasonable. Patient's labs were unremarkable. His wound was repaired. We have discussed home management of the symptoms, as well as usual indications for return. I discussed with the patient's POA that if the patient continues to have an increased incidence of seizures, that he should follow-up with his primary care physician or his neurologist to see if his antiepileptic regimen should be adjusted. Departure - Departure Disposition: 01 Home, Self Care Clinical Impression: Seizure Laceration of scalp Qualifiers: Encounter type: initial encounter Qualified Code(s): S01.01XA - Laceration without foreign body of scalp, initial encounter Condition: Stable Instructions: ED Laceration All, ED Seizure Recurrent Comments: Prem's labs look good. There is no evidence of electrolyte abnormality or other obvious cause of increased seizures. Please call Prem's to follow- up and see if his medications need to be changed if he continues to have increased incidence of seizures.
[2019-09-21 06:52] LABS: ALBUMIN 4.4 g/dL (3.2-5.5); ALBUMIN/GLOBULIN RATIO 1.5 (1.0-2.2); BILIRUBIN,TOTAL 0.3 mg/dL (0.2-1.0); CALCIUM 9.4 mg/dL (8.5-10.3); CREATININE 0.8 mg/dL (0.6-1.2); TOTAL PROTEIN 7.4 g/dL (6.7-8.2)
[2019-09-21 07:01] LABS: BASOPHILS % (AUTO) 0.3 %; HGB - HEMOGLOBIN 13.3 g/dL (14.0-18.0); LYMPHOCYTES # (AUTO) 1.4 10^3/uL (1.5-3.5); LYMPHOCYTES % (AUTO) 35.9 %; MEAN CORPUSCULAR HEMOGLOBIN 32.8 pg (27.0-31.0); MEAN CORPUSCULAR HGB CONC 33.8 g/dL (32.0-36.0); MEAN CORPUSCULAR VOLUME 96.8 fL (80.0-94.0); MEAN PLATELET VOLUME 10.5 fL (7.4-11.4); MONOCYTES # (AUTO) 0.3 10^3/uL (0.0-1.0); MONOCYTES % (AUTO) 6.8 %; NEUTROPHILS # (AUTO) 2.2 10^3/uL (1.5-6.6); NEUTROPHILS % (AUTO) 55.5 %; PLT - PLATELET COUNT 150 10^3/uL (130-450); RED BLOOD COUNT 4.06 10^6/uL (4.70-6.10); RED CELL DISTRIBUTION WIDTH 11.8 % (12.0-15.0)
[2019-09-21 07:37] VITALS: BP 118/77
== END 2019-09-21 07:40 | disposition home or self-care (01) ==
LOC: ED 05:36
DX: R56.9 Unspecified convulsions (principal); S01.81XA Laceration without foreign body of other part of head, initial encounter; W22.8XXA Striking against or struck by other objects, initial encounter; Y93.89 Activity, other specified
CPT/HCPCS: 12002; 36415; 80053; 83690; 85025; 99281; 99283

== ENCOUNTER 2019-11-26 11:45 | Outpatient (CLI) | payer MEDICAID ==
[2019-11-26 18:10] LABS: BASOPHILS % (AUTO) 0.3 %; EOSINOPHILS % (AUTO) 0.4 %; HGB - HEMOGLOBIN 13.3 g/dL (14.0-18.0); LYMPHOCYTES # (AUTO) 1.1 10^3/uL (1.5-3.5); LYMPHOCYTES % (AUTO) 15.1 %; MEAN CORPUSCULAR HEMOGLOBIN 31.8 pg (27.0-31.0); MEAN CORPUSCULAR VOLUME 96.4 fL (80.0-94.0); MEAN PLATELET VOLUME 11.1 fL (7.4-11.4); MONOCYTES # (AUTO) 0.4 10^3/uL (0.0-1.0); NEUTROPHILS # (AUTO) 5.5 10^3/uL (1.5-6.6); NEUTROPHILS % (AUTO) 78.2 %; PLT - PLATELET COUNT 181 10^3/uL (130-450); RED BLOOD COUNT 4.18 10^6/uL (4.70-6.10); RED CELL DISTRIBUTION WIDTH 12.2 % (12.0-15.0)
[2019-11-26 18:50] LABS: THYROID STIMULATING HORMONE 1.45 uIU/mL (0.34-5.60)
[2019-11-26 18:59] LABS: FOLATE 16.86 ng/mL (5.90 - >24.8)
== END 2019-11-26 23:59 | disposition home or self-care (01) ==
LOC: LAB.WCP 11:45
PROVIDERS: ATTEND Family Medicine
DX: D72.819 Decreased white blood cell count, unspecified (principal); D53.9 Nutritional anemia, unspecified
CPT/HCPCS: 36415; 82607; 82746; 84443; 85025

== ENCOUNTER 2019-12-01 11:20 | Outpatient (CLI) | payer MEDICAID | END 2019-12-01 11:21 | disposition critical access hospital (66) | LOC: EMS 11:20 | PROVIDERS: ATTEND Surgery | DX: S01.01XA Laceration without foreign body of scalp, initial encounter (principal); W18.30XA Fall on same level, unspecified, initial encounter; Y92.099 Unspecified place in other non-institutional residence as the place of occurrence of the external cause | CPT/HCPCS: A0425; A0429; A0999 ==

== ENCOUNTER 2019-12-01 12:05 | Emergency (ER) | payer MEDICAID ==
[2019-12-01] MEDS ORDERED: LORazepam 1 MG TABLET PO STA (12:35)
[2019-12-01] MEDS ORDERED: LIDOCAINE-EPINEPH-TETRACAINE 3 ML SYRINGE TOP STA (12:35)
--- NOTE | 2019-12-01 12:38 | ED Physician Documentation ---
PD HPI HEAD INJURY - Stated complaint Stated Complaint: HEAD INJ - Chief complaint Chief Complaint: Trauma Hd/Nk - History obtained from History obtained from: Patient, EMS, Caregiver - History of Present Illness Mechanism of head injury: Fell Where head injury occurred: Home Timing - onset: How many hours ago (1) Pain level max: 0 Pain level now: 0 Location of injury: Back Associated symptoms: No: LOC, AMS, Nausea / vomiting, Neck pain, Paresthesias, Seizures Symptoms improve with: Rest Symptoms worsen with: Other (nothing) Contributing factors: No: Anticoagulated, Intoxicated - Additional information Additional information: Patient has developmental delay, [place]. He fell backwards striking his head on the dresser. He then hit his head on the dresser several times. He is acting at his normal baseline. No vomiting. No loss of consciousness. Review of Systems Constitutional: denies: Fever GI: denies: Vomiting Skin: denies: Rash Musculoskeletal: denies: Neck pain, Back pain Neurologic: denies: Focal weakness, Numbness, LOC PD PAST MEDICAL HISTORY - Past Medical History Cardiovascular: None Respiratory: None Neuro: Head injury, Seizure disorder, Other Endocrine/Autoimmune: None GI: Hemorrhoids : None HEENT: None Psych: Anxiety, Other Musculoskeletal: None Derm: None - Past Surgical History Past Surgical History: Yes - Present Medications Home Medications: Ambulatory Orders Medication Instructions Recorded Confirmed Fluticasone [Flonase] 1 spray TAI DAILY 11/10/13 01/11/17 Guar Gum [Benefiber] 1 tbs PO DAILY 11/10/13 01/11/17 Multivit-Min/Ferrous Sulfate 1 tab PO DAILY 11/10/13 01/11/17 [Multilex Tablet] QUEtiapine [SEROquel] 150 mg PO DAILY 11/10/13 01/11/17 carBAMazepine [TEGretol] 200 mg PO QPM 11/10/13 01/11/17 carBAMazepine [TEGretol] 300 mg PO DAILY 11/10/13 01/11/17 clonazePAM [Klonopin] 0.5 mg PO BID 11/10/13 01/11/17 Azithromycin [Zithromax] 250 mg PO DAILY #6 tablet 01/14/18 Amoxicillin 500 mg PO TID #20 capsule 01/04/19 - Allergies Allergies/Adverse Reactions: Allergies Allergy/AdvReac Type Severity Reaction Status Date / Time No Known Drug Allergies Allergy Verified 12/01/19 12:14 - Social History Does the pt smoke?: No Smoking Status: Never smoker Does the pt drink ETOH?: No Does the pt have substance abuse?: No - Immunizations Immunizations are current?: Yes - POLST Patient has POLST: No PD ED PE NORMAL - Vitals Vital signs reviewed: Yes - General General: No acute distress, Well developed/nourished - HEENT HEENT: PERRL, EOMI, Other (Abrasion to the forehead. Laceration to the occiput. No scalp hematomas. No palpable skull fractures.) - Neck Neck: Supple, no meningeal sign, No bony TTP - Derm Derm: Warm and dry - Neuro Neuro: Other (Alert, sitting in bed. Moans occasionally.) Results - Vitals Vitals: Vital Signs - 24 hr 12/01/19 12:14 Temperature 37.0 C Heart Rate 90 Respiratory 20 Rate Blood Pressure 129/85 H O2 Saturation 99 Oxygen O2 Source Room air Procedures - Laceration (location) occiput Length in cm: 3 Wound type: Linear, Into subcut fat, Clean Neurovascular status: Sensory intact, Vascular intact Anesthesia: LET Wound Preparation: Irrigated copiously NS, Wound explored, To the base Skin layer closure: [place] Other: Patient tolerated well, No complications, Neurovascular intact, Dressing applied, Tetanus UTD Complexity: Simple PD MEDICAL DECISION MAKING - ED course Complexity details: considered differential, d/w family (Caregivers) ED course: Abrasion on the forehead we will treat with local wound care. Occipital laceration was closed with jamal. He tolerated this quite well. We will have him follow-up with his doctor for staple removal. No evidence of skull fracture or intracranial hemorrhage. Normal neurological exam for the patient. Patient counseled regarding signs and symptoms for which I believe and urgent re-evaluation would be necessary. Patient with good understanding of and agreement to plan and is comfortable going home at this time This document was made in part using voice recognition software. While efforts are made to proofread this document, sound alike and grammatical errors may occur. Departure - Departure Disposition: 01 Home, Self Care Clinical Impression: Laceration of scalp Qualifiers: Encounter type: initial encounter Qualified Code(s): S01.01XA - Laceration without foreign body of scalp, initial encounter Condition: Good Instructions: ED Laceration Scalp Stitch Or Stap Follow-Up: Your,doctor in 10 to 14 days [Other] Comments: Follow-up with his doctor in 10 to 14 days for staple removal. Return if he worsens. Return if you notice redness, swelling or purulent drainage from the wound.
[2019-12-01 14:20] VITALS: BP 150/100
== END 2019-12-01 14:18 | disposition home or self-care (01) ==
LOC: EDUNIT# → ED 12:05
DX: S01.01XA Laceration without foreign body of scalp, initial encounter (principal); S00.81XA Abrasion of other part of head, initial encounter; W01.190A Fall on same level from slipping, tripping and stumbling with subsequent striking against furniture, initial encounter; Y92.199 Unspecified place in other specified residential institution as the place of occurrence of the external cause
CPT/HCPCS: 12002; 99282; 99283; J8499

== ENCOUNTER 2020-03-29 06:16 | Outpatient (CLI) | payer MEDICAID | END 2020-03-29 06:17 | disposition EMS.NT | LOC: EMS 06:16 | PROVIDERS: ATTEND Surgery | DX: R56.9 Unspecified convulsions (principal) ==

== ENCOUNTER 2020-03-29 07:15 | Outpatient (CLI) | payer MEDICAID | END 2020-03-29 07:16 | disposition EMS.NT | LOC: EMS 07:15 | PROVIDERS: ATTEND Surgery | DX: R56.9 Unspecified convulsions (principal) ==

== ENCOUNTER 2020-04-03 08:00 | Outpatient (CLI) | payer MEDICAID | END 2020-04-03 08:01 | disposition home or self-care (01) | LOC: LAB.WCP 08:00 | PROVIDERS: ATTEND Psychiatry & Neurology Neurology | DX: G40.909 Epilepsy, unspecified, not intractable, without status epilepticus (principal) | CPT/HCPCS: 36415; 80175 ==

== ENCOUNTER 2020-06-29 13:15 | Outpatient (CLI) | payer MEDICAID | END 2020-06-29 13:16 | disposition critical access hospital (66) | LOC: EMS 13:15 | PROVIDERS: ATTEND Surgery | DX: S01.81XA Laceration without foreign body of other part of head, initial encounter (principal); W22.03XA Walked into furniture, initial encounter; Y93.89 Activity, other specified; Y92.001 Dining room of unspecified non-institutional (private) residence as the place of occurrence of the external cause | CPT/HCPCS: A0425; A0429; A0999 ==

== ENCOUNTER 2020-06-29 13:32 | Emergency (ER) | payer MEDICAID ==
[2020-06-29] MEDS ORDERED: LIDOCAINE-EPINEPH-TETRACAINE 3 ML SYRINGE TOP STA (13:44)
[2020-06-29] MEDS ORDERED: LORazepam 2 MG/ML VIAL IM STA (14:05)
--- NOTE | 2020-06-29 14:05 | ED Physician Documentation ---
PD HPI HEAD INJURY - Stated complaint Stated Complaint: HEAD LAC - Chief complaint Chief Complaint: Laceration - History obtained from History obtained from: Patient, Caregiver - History of Present Illness Location of injury: Front Associated symptoms: No: LOC, Nausea / vomiting - Additional information Additional information: Patient is severely autistic. He was banging his head on a table today at the long-term causing a laceration to the forehead. Has swelling as well. No loss of consciousness. No change from his mental baseline. No other injuries. Nothing makes it better or worse. Unable to give a pain scale. Patient is wearing a helmet Review of Systems Unable to obtain: Other (severe autism/mrcp) PD PAST MEDICAL HISTORY - Past Medical History Cardiovascular: None Respiratory: None Neuro: Head injury, Seizure disorder, Other Endocrine/Autoimmune: None GI: Hemorrhoids : None HEENT: None Psych: Anxiety, Other Musculoskeletal: None Derm: None - Past Surgical History Past Surgical History: Yes - Present Medications Home Medications: Ambulatory Orders Medication Instructions Recorded Confirmed Fluticasone [Flonase] 1 spray TAI DAILY 11/10/13 01/11/17 Guar Gum [Benefiber] 1 tbs PO DAILY 11/10/13 01/11/17 Multivit-Min/Ferrous Sulfate 1 tab PO DAILY 11/10/13 01/11/17 [Multilex Tablet] QUEtiapine [SEROquel] 150 mg PO DAILY 11/10/13 01/11/17 carBAMazepine [TEGretol] 200 mg PO QPM 11/10/13 01/11/17 carBAMazepine [TEGretol] 300 mg PO DAILY 11/10/13 01/11/17 clonazePAM [Klonopin] 0.5 mg PO BID 11/10/13 01/11/17 Azithromycin [Zithromax] 250 mg PO DAILY #6 tablet 01/14/18 Amoxicillin 500 mg PO TID #20 capsule 01/04/19 - Allergies Allergies/Adverse Reactions: Allergies Allergy/AdvReac Type Severity Reaction Status Date / Time No Known Drug Allergies Allergy Verified 12/01/19 12:14 - Social History Does the pt smoke?: No Smoking Status: Never smoker Does the pt drink ETOH?: No Does the pt have substance abuse?: No - Immunizations Immunizations are current?: Yes - POLST Patient has POLST: No PD ED PE NORMAL - Vitals Vital signs reviewed: Yes - General General: Other (alert, covered in blood on the face and hands. helmet in place) - HEENT HEENT: PERRL, EOMI, Other (helmet removed. swelling to the forehead. 2 cm vertical laceration to the L forehead. NVI. no bleeding.) - Neck Neck: Supple, no meningeal sign - Cardiac Cardiac: RRR - Respiratory Respiratory: No respiratory distress, Clear bilaterally - Abdomen Abdomen: Soft, Non tender, Non distended - Derm Derm: Warm and dry - Extremities Extremities: Normal ROM s pain - Neuro Neuro: Other (alert) Results - Vitals Vitals: Vital Signs - 24 hr 06/29/20 06/29/20 13:42 15:48 Temperature 37.0 C Heart Rate 101 H 107 H Respiratory 18 20 Rate Blood Pressure 138/75 H 107/85 H O2 Saturation 96 100 Oxygen O2 Source Room air - Rads (name of study) head CT Radiology: Prelim report reviewed, EMP read contemporaneously Procedures - Laceration (location) L forehead Length in cm: 3 Wound type: Linear, Into subcut fat, Clean Neurovascular status: Sensory intact, Motor intact, Vascular intact Anesthesia: LET Wound preparation: Irrigated copiously NS Skin layer closure: Dermabond, Steri strips Other: Patient tolerated well, No complications, Neurovascular intact, Dressing applied, Tetanus UTD PD MEDICAL DECISION MAKING - ED course Complexity details: reviewed results, re-evaluated patient, considered differential, d/w patient ED course: Laceration repaired with Dermabond and Steri-Strips. Patient does not tolerate suturing well. Patient was given Ativan for the CT of the head. No acute intracranial abnormalities. Wound care instructions given at bedside to his caregiver. Patient will follow up with his PCP for further care. Caregiver counseled regarding signs and symptoms for which I believe and urgent re- evaluation would be necessary. Caregiver with good understanding of and agreement to plan and is comfortable going home at this time This document was made in part using voice recognition software. While efforts are made to proofread this document, sound alike and grammatical errors may occur. No acute intracranial hemorrhage or calvarial fracture. 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 Departure - Departure Disposition: 01 Home, Self Care Clinical Impression: Head injury Qualifiers: Encounter type: initial encounter Qualified Code(s): S09.90XA - Unspecified injury of head, initial encounter Forehead laceration Qualifiers: Encounter type: initial encounter Qualified Code(s): S01.81XA - Laceration without foreign body of other part of head, initial encounter Condition: Good Instructions: ED Head Injury Closed, ED Laceration Facial Skin Glue Follow-Up: PEÑA HERNANDEZ, MSN, [employer] [Primary Care Provider] - Within 1 week Comments: Follow up with your doctor in 1 week. Return if you worsen. Your head CT does not show any acute abnormality today. The glue and steri strips will fall off on their own.
--- NOTE | 2020-06-29 15:09 | CT Report ---
PROCEDURE: HEAD WO INDICATIONS: head injury TECHNIQUE: Noncontrast 4.5 mm thick angled axial sections acquired from the foramen magnum to the vertex. For r adiation dose reduction, the following was used: automated exposure control, adjustment of mA and/or kV according to patient size. COMPARISON: 05/31/2019 and 01/04/2019 FINDINGS: Image quality: Excellent. Brain/CSF spaces: Again noted is bilateral parieto-occipital porencephaly. Unchanged prominence of th e lateral ventricles. There is no acute intracranial hemorrhage. No focal extra-axial fluid collectio n. The intact parenchyma is within normal limits without johnston-white matter loss. No mass effect or mi dline shift. Stable CSF fluid collection along the right cerebellar hemisphere likely representing ar achnoid cyst. Skull and face: Unchanged soft tissue irregularity and soft tissue prominence overlying the right fro ntal bone. No calvarial fracture. Sinuses: Visualized sinuses and mastoids are clear. IMPRESSION: No acute intracranial hemorrhage or calvarial fracture. 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 Reviewed by: Ramesh Charles DO on 06/29/2020 2:08 PM [facility] Approved by: Ramesh Charles DO on 06/29/2020 2:08 PM [facility] Station ID: [id number]
[2020-06-29 15:48] VITALS: BP 107/85
== END 2020-06-29 16:16 | disposition home or self-care (01) ==
LOC: EDUNIT# → ED 13:32
DX: S01.81XA Laceration without foreign body of other part of head, initial encounter (principal); W22.8XXA Striking against or struck by other objects, initial encounter; Y92.099 Unspecified place in other non-institutional residence as the place of occurrence of the external cause; F84.0 Autistic disorder
CPT/HCPCS: 12013; 70450; 96372; 99281; 99284; J2060

== ENCOUNTER 2020-07-26 12:32 | Outpatient (CLI) | payer MEDICAID | END 2020-07-26 12:33 | disposition critical access hospital (66) | LOC: EMS 12:32 | PROVIDERS: ATTEND Emergency Medicine | DX: S01.91XA Laceration without foreign body of unspecified part of head, initial encounter (principal); R46.89 Other symptoms and signs involving appearance and behavior; Y04.2XXA Assault by strike against or bumped into by another person, initial encounter; Y93.89 Activity, other specified; Y92.199 Unspecified place in other specified residential institution as the place of occurrence of the external cause | CPT/HCPCS: A0425; A0429; A0999 ==

== ENCOUNTER 2020-07-26 12:53 | Emergency (ER) | payer MEDICAID ==
[2020-07-26] MEDS ORDERED: TETANUS/DIPHTHERIA/PERTUSSIS 0.5 ML SYRINGE IM ONE (13:01)
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
[2020-07-26] MEDS ORDERED: KETAMINE 500 MG/10 ML VIAL IM STA (13:14)
--- NOTE | 2020-07-26 14:08 | CT Report ---
PROCEDURE: HEAD WO INDICATIONS: head injury TECHNIQUE: Noncontrast 4.5 mm thick angled axial sections acquired from the foramen magnum to the vertex. For r adiation dose reduction, the following was used: automated exposure control, adjustment of mA and/or kV according to patient size. COMPARISON: 06/29/2020, 01/04/2019, 05/31/2018. Correlation is also made with the accompanying cervical spine CT, 05/25/2021 FINDINGS: Image quality: Excellent. CSF spaces: Basal cisterns are patent. No extra-axial fluid collections. Ventricles are normal in size and shape. Brain: Congenital anomalies can be seen, with bilateral occipital porencephaly. No midline shift. N o intracranial masses or hemorrhage. Zimmer-white matter interface is normal. Skull and face: Right-sided scalp jamal are seen. Calvarium and visualized facial bones are intact, without suspicious lesions. Sinuses: Visualized sinuses and mastoids are clear. IMPRESSION: No delia, acute abnormality is detected. No intracranial hemorrhage is seen. Stable brain anomalies, with bilateral occipital porencephaly. Reviewed by: Erich Hart MD on 07/26/2020 1:07 PM [facility] Approved by: Erich Hart MD on 07/26/2020 1:07 PM [facility] Station ID: [id number]
--- NOTE | 2020-07-26 14:09 | CT Report ---
PROCEDURE: CERVICAL SPINE WO INDICATIONS: head injury TECHNIQUE: Noncontrast 3 mm thick sections acquired from the skull base to the T4 level. Sagittal and coronal r eformats were then constructed. For radiation dose reduction, the following was used: automated exp osure control, adjustment of mA and/or kV according to patient size. COMPARISON: Prior cervical spine CT, 01/04/2019 Correlation is made with the accompanying head CT, 07/08. FINDINGS: Image quality: Excellent. Bones: No fractures or dislocations. Visualized superior ribs are intact. Soft tissues: Prevertebral soft tissues are normal in thickness. No paravertebral hematomas. No ap ical pneumothoraces. IMPRESSION: Negative for acute fracture. Reviewed by: Erich Hart MD on 07/26/2020 1:07 PM [facility] Approved by: Erich Hart MD on 07/26/2020 1:07 PM [facility] Station ID: [id number]
[2020-07-26 14:32] VITALS: BP 118/95
== END 2020-07-26 14:56 | disposition home or self-care (01) ==
LOC: EDUNIT# → ED 12:53
DX: S01.01XA Laceration without foreign body of scalp, initial encounter (principal); S09.90XA Unspecified injury of head, initial encounter; Y04.8XXA Assault by other bodily force, initial encounter; Y92.199 Unspecified place in other specified residential institution as the place of occurrence of the external cause; Z23 Encounter for immunization
CPT/HCPCS: 12004; 90471; 94770; 99152; 99281; 99285

== ENCOUNTER 2020-07-28 08:00 | Outpatient (CLI) | payer MEDICAID ==
[2020-07-28 12:31] LABS: CARBAMAZEPINE (TEGRETOL) 8.1 ug/mL
== END 2020-07-28 23:59 | disposition home or self-care (01) ==
LOC: LAB.WCP 08:00
PROVIDERS: ATTEND Psychiatry & Neurology Neurology
DX: E55.9 Vitamin D deficiency, unspecified (principal); G40.909 Epilepsy, unspecified, not intractable, without status epilepticus
CPT/HCPCS: 36415; 80156; 80175; 81599; 82652

== ENCOUNTER 2020-08-05 09:38 | Emergency (ER) | payer MEDICAID ==
[2020-08-05] MEDS ORDERED: KETAMINE 500 MG/10 ML VIAL IM STA (09:46)
[2020-08-05] MEDS ORDERED: KETAMINE 500 MG/10 ML VIAL ONE (09:55)
[2020-08-05 10:19] VITALS: BP 160/17
[2020-08-05] MEDS ORDERED: ONDANSETRON ODT 4 MG TABLET TL STA (11:41)
--- NOTE | 2020-08-05 11:43 | ED Physician Documentation ---
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 no other complaints. Review of Systems Unable to obtain: Other (severe MR) PD PAST MEDICAL HISTORY - Past Medical History Past Medical History: Yes Cardiovascular: None Respiratory: None Neuro: Head injury, Seizure disorder, Other Endocrine/Autoimmune: None GI: Hemorrhoids : None HEENT: None Psych: Anxiety, Other Musculoskeletal: None Derm: None Other Past Medical History: Porencephaly - Past Surgical History Past Surgical History: Yes - Present Medications Home Medications: Ambulatory Orders Medication Instructions Recorded Confirmed Fluticasone [Flonase] 1 spray TAI DAILY 11/10/13 01/11/17 Guar Gum [Benefiber] 1 tbs PO DAILY 11/10/13 01/11/17 Multivit-Min/Ferrous Sulfate 1 tab PO DAILY 11/10/13 01/11/17 [Multilex Tablet] QUEtiapine [SEROquel] 150 mg PO DAILY 11/10/13 01/11/17 carBAMazepine [TEGretol] 200 mg PO QPM 11/10/13 01/11/17 carBAMazepine [TEGretol] 300 mg PO DAILY 11/10/13 01/11/17 clonazePAM [Klonopin] 0.5 mg PO BID 11/10/13 01/11/17 Azithromycin [Zithromax] 250 mg PO DAILY #6 tablet 01/14/18 Amoxicillin 500 mg PO TID #20 capsule 01/04/19 Ondansetron Odt [Zofran] 4 mg TL Q6H PRN #10 tab 07/26/20 - Allergies Allergies/Adverse Reactions: Allergies Allergy/AdvReac Type Severity Reaction Status Date / Time No Known Drug Allergies Allergy Verified 08/05/20 10:19 - Social History Does the pt smoke?: No Smoking Status: Never smoker Does the pt drink ETOH?: No Does the pt have substance abuse?: No - Immunizations Immunizations are current?: Yes - POLST Patient has POLST: No PD ED PE NORMAL - Vitals Vital signs reviewed: Yes - General General: Other (alert, acutely agitated but able to be redirected) - HEENT HEENT: PERRL, EOMI, Other (patient initially arrived wearing helmet. once he was able to be calmed enough for ketamine shot, helmet was removed showing multiple lacerations of varying ages including well healing scalp lac with [address] jamal were removed under conscious sedation. ) - Neck Neck: No bony TTP - Psych Psych: Other (alert, eye opening spontaneously, moving extremities, mentating at baseline per caregiver) Results - Vitals Vitals: Vital Signs - 24 hr 08/05/20 08/05/20 10:00 10:44 Temperature 36.9 C Heart Rate 91 Respiratory 18 20 Rate Blood Pressure 160/17 H O2 Saturation 100 100 Oxygen O2 Source Room air PD MEDICAL DECISION MAKING - ED course ED course: 34yM with severe MR and history of self-injurious behavior and bouts of agitation presents for scalp staple removal. He was agitated upon arrival, attempting to bang his head on the wall. After patient received IM ketamine sedation, scalp laceration was found to be healing well and jamal were taken out. no new laceration from self-injurious behavior today, however he did have swelling/abrasion from an old lac that was cleaned under sedation. patient returned to baseline within 20 minutes and was discharged with return precautions. plan to f/u with pmd routinely. Departure - Departure Disposition: 01 Home, Self Care Clinical Impression: Scalp laceration, Removal of staple Condition: Good Instructions: ED Laceration All Comments: You were seen in the emergency department for staple removal. 21 jamal were removed. Ketamine was given for sedation and you have return to normal now. Please monitor for signs of changes in mental status or effects of the medication. Return to the emergency department for any new concerns. Discharge Date/Time: 08/05/20 12:11
== END 2020-08-05 12:11 | disposition home or self-care (01) ==
LOC: ED 09:38
DX: Z48.02 Encounter for removal of sutures (principal); S01.01XD Laceration without foreign body of scalp, subsequent encounter; R45.1 Restlessness and agitation
CPT/HCPCS: 96372; 99281; 99285; Q0162

== ENCOUNTER 2020-12-02 08:00 | Outpatient (CLI) | payer MEDICAID ==
[2020-12-02 18:05] LABS: BASOPHILS % (AUTO) 0.4 %; EOSINOPHILS # (AUTO) 0.1 10^3/uL (0.0-0.7); EOSINOPHILS % (AUTO) 1.6 %; HCT - HEMATOCRIT 39.5 % (42.0-52.0); HGB - HEMOGLOBIN 12.9 g/dL (14.0-18.0); LYMPHOCYTES # (AUTO) 2.3 10^3/uL (1.5-3.5); LYMPHOCYTES % (AUTO) 45.8 %; MEAN CORPUSCULAR HEMOGLOBIN 31.5 pg (27.0-31.0); MEAN CORPUSCULAR HGB CONC 32.7 g/dL (32.0-36.0); MEAN CORPUSCULAR VOLUME 96.3 fL (80.0-94.0); MEAN PLATELET VOLUME 10.8 fL (7.4-11.4); MONOCYTES # (AUTO) 0.4 10^3/uL (0.0-1.0); MONOCYTES % (AUTO) 7.7 %; NEUTROPHILS # (AUTO) 2.2 10^3/uL (1.5-6.6); NEUTROPHILS % (AUTO) 44.3 %; PLT - PLATELET COUNT 189 10^3/uL (130-450); WHITE BLOOD COUNT 5.1 x10^3/uL (4.8-10.8)
[2020-12-02 18:27] LABS: % IRON SATURATION 30 % (20-50); ALBUMIN 4.6 g/dL (3.2-5.5); ALBUMIN/GLOBULIN RATIO 1.6 (1.0-2.2); ALKALINE PHOSPHATASE 90 IU/L (42-121); ALT ALANINE AMINOTRANSFERASE 23 IU/L (10-60); AST ASPARTATE AMINOTRANSFERASE 18 IU/L (10-42); BILIRUBIN,TOTAL 0.4 mg/dL (0.2-1.0); BUN - BLOOD UREA NITROGEN 21 mg/dL (6-20); CALCIUM 9.2 mg/dL (8.5-10.3); CARBON DIOXIDE - CO2 28 mmol/L (21-32); CHLORIDE 108 mmol/L (101-111); CHOL/HDL RATIO 3.6 (<5.0); CHOLESTEROL 152 mg/dL; CREATININE 0.8 mg/dL (0.6-1.2); GFR - MDRD 111 (>89); GLUCOSE 98 mg/dL (70-100); HDL CHOLESTEROL 42 mg/dL; IRON 91 ug/dL (45-182); LDL CHOLESTEROL,CALCULATED 72 mg/dL; LDL/HDL RATIO 1.7 (<3.6); POTASSIUM 3.7 mmol/L (3.5-5.0); SODIUM 142 mmol/L (135-145); TOTAL IRON BINDING CAPACITY 300 ug/dL (250-450); TOTAL PROTEIN 7.5 g/dL (6.7-8.2); TRANSFERRIN 214 mg/dL (180-329); TRIGLYCERIDES 192 mg/dL; VLDL CHOLESTEROL 38 mg/dL
[2020-12-02 18:40] LABS: FOLATE 16.48 ng/mL (5.90 - >24.8)
[2020-12-02 20:24] LABS: ESTIMATED AVERAGE GLUCOSE 97 mg/dL (70-100)
== END 2020-12-02 23:59 | disposition home or self-care (01) ==
LOC: LAB.WCP 08:00
PROVIDERS: ATTEND Family Medicine
DX: D53.9 Nutritional anemia, unspecified (principal); Z79.899 Other long term (current) drug therapy
CPT/HCPCS: 36415; 80053; 80061; 82607; 82746; 83036; 83540; 83721; 84466; 85025

== ENCOUNTER 2021-11-16 09:54 | Outpatient (CLI) | payer MEDICAID ==
[2021-11-16 12:00] LABS: BASOPHILS % (AUTO) 0.3 %; EOSINOPHILS # (AUTO) 0.1 10^3/uL (0.0-0.7); EOSINOPHILS % (AUTO) 2.1 %; HGB - HEMOGLOBIN 14.1 g/dL (14.0-18.0); LYMPHOCYTES # (AUTO) 1.5 10^3/uL (1.5-3.5); MEAN CORPUSCULAR HGB CONC 33.6 g/dL (32.0-36.0); MEAN CORPUSCULAR VOLUME 95.2 fL (80.0-94.0); MEAN PLATELET VOLUME 10.2 fL (7.4-11.4); MONOCYTES # (AUTO) 0.3 10^3/uL (0.0-1.0); MONOCYTES % (AUTO) 8.8 %; NEUTROPHILS # (AUTO) 1.4 10^3/uL (1.5-6.6); NEUTROPHILS % (AUTO) 43.2 %; PLT - PLATELET COUNT 192 10^3/uL (130-450); RED BLOOD COUNT 4.41 10^6/uL (4.70-6.10); RED CELL DISTRIBUTION WIDTH 12.1 % (12.0-15.0); WHITE BLOOD COUNT 3.3 x10^3/uL (4.8-10.8)
[2021-11-16 12:09] LABS: ESTIMATED AVERAGE GLUCOSE 97 mg/dL (70-100)
[2021-11-16 12:15] LABS: ALBUMIN 4.8 g/dL (3.2-5.5); ALBUMIN/GLOBULIN RATIO 1.4 (1.0-2.2); ALKALINE PHOSPHATASE 123 IU/L (42-121); ALT ALANINE AMINOTRANSFERASE 28 IU/L (10-60); AST ASPARTATE AMINOTRANSFERASE 22 IU/L (10-42); BILIRUBIN,TOTAL 0.2 mg/dL (0.2-1.0); BUN - BLOOD UREA NITROGEN 11 mg/dL (6-20); CALCIUM 10.3 mg/dL (8.5-10.3); CARBON DIOXIDE - CO2 29 mmol/L (21-32); CHLORIDE 102 mmol/L (101-111); CHOL/HDL RATIO 3.2 (<5.0); CHOLESTEROL 168 mg/dL; CREATININE 0.9 mg/dL (0.6-1.2); GFR - MDRD 96 (>89); GLUCOSE 80 mg/dL (70-100); HDL CHOLESTEROL 52 mg/dL; LDL CHOLESTEROL,CALCULATED 94 mg/dL; LDL/HDL RATIO 1.8 (<3.6); POTASSIUM 3.8 mmol/L (3.5-5.0); SODIUM 141 mmol/L (135-145); TOTAL PROTEIN 8.2 g/dL (6.7-8.2); TRIGLYCERIDES 109 mg/dL; VLDL CHOLESTEROL 22 mg/dL
[2021-11-16 12:21] LABS: THYROID STIMULATING HORMONE 2.09 uIU/mL (0.34-5.60)
== END 2021-11-16 09:55 | disposition home or self-care (01) ==
LOC: LAB.N 09:54
PROVIDERS: ATTEND Nurse Practitioner Family
DX: G40.909 Epilepsy, unspecified, not intractable, without status epilepticus (principal); Z79.899 Other long term (current) drug therapy
CPT/HCPCS: 36415; 80050; 80061; 80157; 81599; 83036; 83721

== ENCOUNTER 2022-03-14 20:48 | Outpatient (CLI) | payer MEDICAID | END 2022-03-14 20:49 | disposition EMS.NT | LOC: EMS 20:48 | DX: H92.01 Otalgia, right ear (principal); R45.1 Restlessness and agitation ==

== ENCOUNTER 2022-03-16 11:06 | Emergency (ER) | payer MEDICAID ==
[2022-03-16] MEDS ORDERED: PROPOFOL 200 MG/20 ML VIAL IVP STA (13:39)
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
[2022-03-16 14:27] VITALS: BP 115/82
== END 2022-03-16 15:11 | disposition home or self-care (01) ==
LOC: ED 11:06
DX: H61.21 Impacted cerumen, right ear (principal); F84.0 Autistic disorder
CPT/HCPCS: 69209; 99152; 99281

== ENCOUNTER 2022-07-16 11:22 | Emergency (ER) | payer MEDICAID ==
[2022-07-16] MEDS ORDERED: LIDOCAINE-EPINEPH-TETRACAINE 3 ML SYRINGE TOP STA (12:15)
--- NOTE | 2022-07-16 12:17 | ED Physician Documentation ---
History of Present Illness - Stated complaint Stated Complaint: L FINGER SWOLLEN - Chief complaint Chief Complaint: Wound - History obtained from History obtained from: Caregiver - Additonal information Additional information: Patient is a 36-year-old developmentally delayed male who has caregivers. His caregiver is here with him. She states that they noticed his left index finger was swollen and red around the nail today. She does not know his medications. Does not have a list of his medications. History is exclusively from the caregiver. Patient is unable to give any history. Review of Systems Constitutional: denies: Fever GI: denies: Vomiting PD PAST MEDICAL HISTORY - Past Medical History Past Medical History: Yes Cardiovascular: None Respiratory: None Neuro: Head injury, Seizure disorder Endocrine/Autoimmune: None GI: Hemorrhoids : None HEENT: None Psych: Anxiety, Other Musculoskeletal: None Derm: None - Past Surgical History Past Surgical History: Yes - Present Medications Home Medications: Ambulatory Orders Medication Instructions Recorded Confirmed Fluticasone [Flonase] 1 spray TAI DAILY 11/10/13 01/11/17 Guar Gum [Benefiber] 1 tbs PO DAILY 11/10/13 01/11/17 Multivit-Min/Ferrous Sulfate 1 tab PO DAILY 11/10/13 01/11/17 [Multilex Tablet] QUEtiapine [SEROquel] 150 mg PO DAILY 11/10/13 01/11/17 carBAMazepine [TEGretol] 200 mg PO QPM 11/10/13 01/11/17 carBAMazepine [TEGretol] 300 mg PO DAILY 11/10/13 01/11/17 clonazePAM [Klonopin] 0.5 mg PO BID 11/10/13 01/11/17 Azithromycin [Zithromax] 250 mg PO DAILY #6 tablet 01/14/18 Amoxicillin 500 mg PO TID #20 capsule 01/04/19 Ondansetron Odt [Zofran] 4 mg TL Q6H PRN #10 tab 07/26/20 cephALEXin [Keflex] 500 mg PO Q6H #28 cap 07/16/22 - Allergies Allergies/Adverse Reactions: Allergies Allergy/AdvReac Type Severity Reaction Status Date / Time No Known Drug Allergies Allergy Verified 07/16/22 11:37 - Social History Does the pt smoke?: No Smoking Status: Never smoker Does the pt drink ETOH?: No Does the pt have substance abuse?: No - Immunizations Immunizations are current?: Yes - POLST Patient has POLST: No PD ED PE NORMAL - Vitals Vital signs reviewed: Yes - General General: No acute distress, Other (Alert, wearing a hard sided helmet) - Derm Derm: Warm and dry - Extremities Extremities: Other (There is swelling around the left index finger. This is mainly around the nailbed. Erythema present, fluctuance present. Neurovascular intact) - Neuro Neuro: Other (Alert) Results - Vitals Vitals: Vital Signs - 24 hr 07/16/22 07/16/22 11:32 13:29 Temperature 36.4 C L 36.8 C Heart Rate 107 H 98 Respiratory 16 18 Rate Blood Pressure 131/85 H 130/79 O2 Saturation 100 100 Oxygen O2 Source Room air Procedures - General procedure General procedure: Left index finger paronychia drainage - L. E. T. Was applied to the left index finger and allowed to sit for approximately 30 minutes. The blunt edge of a #11 blade scalpel was then used to elevate the nail fold. Purulent material was obtained. Patient tolerated well. No complications. PD Medical Decision Making - ED course Complexity details: considered differential, d/w patient ED course: 36-year-old with a left index finger paronychia. This is drained. Tolerated well. He does have some surrounding cellulitis, therefore placed on cephalexin. Encourage warm water soaks as well. Instructions given to his caregiver. This document was made in part using voice recognition software. While efforts are made to proofread this document, sound alike and grammatical errors may occur. Departure - Departure Disposition: 01 Home, Self Care Clinical Impression: Paronychia Condition: Good Instructions: ED Fingernail Infec Follow-Up: Ursula Quach ARNP [Primary Care Provider] - Within 1 week Prescriptions: cephALEXin [Keflex] 500 mg PO Q6H #28 cap Comments: Your prescription was sent to [facility] in [place]. Please take all antibiotics until gone. Continue warm water soaks 2-3 times a day for about 10 to 15 minutes at a time. This will help the infection continue to drain. Please return if he worsens. Discharge Date/Time: 07/16/22 13:29
[2022-07-16 13:30] VITALS: BP 130/79
== END 2022-07-16 13:29 | disposition home or self-care (01) ==
LOC: ED 11:22
DX: L03.012 Cellulitis of left finger (principal); Z79.899 Other long term (current) drug therapy
CPT/HCPCS: 26010

== ENCOUNTER 2022-12-24 07:34 | Outpatient (CLI) | payer MEDICAID ==
[2022-12-24 12:24] LABS: BASOPHILS % (AUTO) 0.4 %; EOSINOPHILS # (AUTO) 0.1 10^3/uL (0.0-0.7); EOSINOPHILS % (AUTO) 1.7 %; HCT - HEMATOCRIT 39.7 % (42.0-52.0); LYMPHOCYTES # (AUTO) 1.6 10^3/uL (1.5-3.5); LYMPHOCYTES % (AUTO) 34.7 %; MEAN CORPUSCULAR HEMOGLOBIN 31.3 pg (27.0-31.0); MEAN CORPUSCULAR HGB CONC 32.7 g/dL (32.0-36.0); MEAN CORPUSCULAR VOLUME 95.4 fL (80.0-94.0); MEAN PLATELET VOLUME 11.1 fL (7.4-11.4); MONOCYTES # (AUTO) 0.4 10^3/uL (0.0-1.0); MONOCYTES % (AUTO) 8.4 %; NEUTROPHILS # (AUTO) 2.6 10^3/uL (1.5-6.6); NEUTROPHILS % (AUTO) 54.6 %; PLT - PLATELET COUNT 211 10^3/uL (130-450); RED BLOOD COUNT 4.16 10^6/uL (4.70-6.10); RED CELL DISTRIBUTION WIDTH 12.1 % (12.0-15.0); WHITE BLOOD COUNT 4.7 x10^3/uL (4.8-10.8)
[2022-12-24 12:48] LABS: ALBUMIN 4.6 g/dL (3.2-5.5); ALBUMIN/GLOBULIN RATIO 1.6 (1.0-2.2); ALKALINE PHOSPHATASE 104 IU/L (42-121); ALT ALANINE AMINOTRANSFERASE 16 IU/L (10-60); AST ASPARTATE AMINOTRANSFERASE 15 IU/L (10-42); BILIRUBIN,TOTAL 0.5 mg/dL (0.2-1.0); BUN - BLOOD UREA NITROGEN 13 mg/dL (6-20); CALCIUM 9.9 mg/dL (8.5-10.3); CARBON DIOXIDE - CO2 29 mmol/L (21-32); CHLORIDE 106 mmol/L (101-111); CHOL/HDL RATIO 2.9 (<5.0); CHOLESTEROL 137 mg/dL (136-290); CREATININE 0.9 mg/dL (0.6-1.3); GFR - MDRD 95 (>89); GLUCOSE 82 mg/dL (74-104); HDL CHOLESTEROL 48 mg/dL; LDL CHOLESTEROL,CALCULATED 72 mg/dL; LDL/HDL RATIO 1.5 (<3.6); SODIUM 141 mmol/L (135-145); TOTAL PROTEIN 7.5 g/dL (6.4-8.9); TRIGLYCERIDES 87 mg/dL (48-352); VLDL CHOLESTEROL 17 mg/dL
[2022-12-24 13:05] LABS: THYROID STIMULATING HORMONE 2.41 uIU/mL (0.34-5.60)
== END 2022-12-24 07:35 | disposition home or self-care (01) ==
LOC: LAB.N 07:34
PROVIDERS: ATTEND Nurse Practitioner Family
DX: D53.9 Nutritional anemia, unspecified (principal); G40.909 Epilepsy, unspecified, not intractable, without status epilepticus; G93.49 Other encephalopathy; F41.9 Anxiety disorder, unspecified; Z79.899 Other long term (current) drug therapy
CPT/HCPCS: 36415; 80050; 80061; 80175; 80307; 80365; 81599; 83721

== ENCOUNTER 2023-08-23 10:53 | Emergency (ER) | payer MEDICAID ==
--- NOTE | 2023-08-23 11:23 | ED Physician Documentation ---
PD HPI HEENT - Stated complaint Stated Complaint: NOSE BLEEDS - Chief complaint Chief Complaint: Heent - History obtained from History obtained from: Patient, Caregiver - Additional information Additional information: 37-year-old gentleman with developmental delay, brain cysts, and seizure disorder has occasional nosebleeds but been much more frequent and daily over the last week with large volume amounts. History is limited because of developmental delay and most of the history is from the caregiver. PD PAST MEDICAL HISTORY - Past Medical History Past Medical History: Yes Cardiovascular: None Respiratory: None Neuro: Head injury, Seizure disorder Endocrine/Autoimmune: None GI: Hemorrhoids : None HEENT: None Psych: Anxiety, Other Musculoskeletal: None Derm: None - Past Surgical History Past Surgical History: Yes - Present Medications Home Medications: Ambulatory Orders Medication Instructions Recorded Confirmed Fluticasone [Flonase] 1 spray TAI DAILY 11/10/13 01/11/17 Guar Gum [Benefiber] 1 tbs PO DAILY 11/10/13 01/11/17 Multivit-Min/Ferrous Sulfate 1 tab PO DAILY 11/10/13 01/11/17 [Multilex Tablet] QUEtiapine [SEROquel] 150 mg PO DAILY 11/10/13 01/11/17 carBAMazepine [TEGretol] 200 mg PO QPM 11/10/13 01/11/17 carBAMazepine [TEGretol] 300 mg PO DAILY 11/10/13 01/11/17 clonazePAM [Klonopin] 0.5 mg PO BID 11/10/13 01/11/17 Azithromycin [Zithromax] 250 mg PO DAILY #6 tablet 01/14/18 Amoxicillin 500 mg PO TID #20 capsule 01/04/19 Ondansetron Odt [Zofran] 4 mg TL Q6H PRN #10 tab 07/26/20 cephALEXin [Keflex] 500 mg PO Q6H #28 cap 07/16/22 Oxymetazoline HCl [Afrin] 1 spray NS BID #15 ml 08/23/23 - Allergies Allergies/Adverse Reactions: Allergies Allergy/AdvReac Type Severity Reaction Status Date / Time No Known Drug Allergies Allergy Verified 08/23/23 11:09 - Social History Does the pt smoke?: No Smoking Status: Never smoker Does the pt drink ETOH?: No Does the pt have substance abuse?: No - Immunizations Immunizations are current?: Yes - POLST Patient has POLST: No PD ED PE NORMAL - Vitals Vital signs reviewed: Yes - General General: Other (37-year-old gentleman who is pleasant and cooperative. He is mostly nonverbal, wearing a helmet.) - HEENT HEENT: Other (No active bleeding, there is dried blood in the right nare, nothing obvious that needs cautery.) Results - Vitals Vitals: Vital Signs - 24 hr 08/23/23 11:05 Temperature 36.1 C L Heart Rate 90 Respiratory 20 Rate Blood Pressure 122/79 O2 Saturation 99 Oxygen O2 Source Room air - Labs Labs: Laboratory Tests 08/23/23 08/23/23 11:30 11:30 Hgb 12.8 L Hct 38.7 L PT 12.4 INR 1.1 PD Medical Decision Making - ED course ED course: 37-year-old gentleman with increased but currently resolved nosebleed. H&H with mild anemia but stable from prior values for him. INR normal. No active bleeding in the ER. Departure - Departure Disposition: 01 Home, Self Care Clinical Impression: Epistaxis Condition: Good Record reviewed to determine appropriate education?: Yes Instructions: ED Nosebleed Prescriptions: Oxymetazoline HCl [Afrin] 1 spray NS BID #15 ml Comments: [facility] blood counts are in line with where they usually are and he has normal coagulation parameters. If he develops a nosebleed tried to put a spray of the oxymetazoline on up both nostrils and then pinch the nose. If he continues to have issues, reasonable to follow-up with an ENT specialist, the closest is in [place], the phone number is [phone]. Return if worse. Forms: PCP List
[2023-08-23 11:37] LABS: HCT - HEMATOCRIT 38.7 % (42.0-52.0); HGB - HEMOGLOBIN 12.8 g/dL (14.0-18.0)
[2023-08-23 11:48] LABS: INR 1.1 (0.8-1.2); PT - PROTHROMBIN TIME 12.4 secs (9.9-12.6)
[2023-08-23] MEDS: OXYMETAZOLINE HCL 100 SPRAYS BOTTLE NAS STA (12:05)
[2023-08-23 12:18] VITALS: BP 124/76; O2SAT 98
== END 2023-08-23 12:13 | disposition home or self-care (01) ==
LOC: ED 10:53
DX: R04.0 Epistaxis (principal); D64.9 Anemia, unspecified; R62.50 Unspecified lack of expected normal physiological development in childhood; G93.0 Cerebral cysts; G40.909 Epilepsy, unspecified, not intractable, without status epilepticus; Z79.899 Other long term (current) drug therapy
CPT/HCPCS: 36415; 85014; 85018; 85610; 99283; A9270

== ENCOUNTER 2023-10-18 07:03 | Outpatient (CLI) | payer MEDICARE, MEDICAID | END 2023-10-18 23:59 | disposition critical access hospital (66) | LOC: EMS 07:03 | DX: R56.9 Unspecified convulsions (principal) | CPT/HCPCS: A0425; A0429 ==

== ENCOUNTER 2023-10-18 07:19 | Emergency (ER) | payer MEDICARE, MEDICAID ==
[2023-10-18 08:08] LABS: BASOPHILS % (AUTO) 0.4 %; EOSINOPHILS % (AUTO) 0.4 %; HCT - HEMATOCRIT 39.2 % (42.0-52.0); HGB - HEMOGLOBIN 12.7 g/dL (14.0-18.0); LYMPHOCYTES # (AUTO) 0.9 10^3/uL (1.5-3.5); LYMPHOCYTES % (AUTO) 18.2 %; MEAN CORPUSCULAR HEMOGLOBIN 30.6 pg (27.0-31.0); MEAN CORPUSCULAR HGB CONC 32.4 g/dL (32.0-36.0); MEAN CORPUSCULAR VOLUME 94.5 fL (80.0-94.0); MEAN PLATELET VOLUME 9.7 fL (7.4-11.4); MONOCYTES # (AUTO) 0.3 10^3/uL (0.0-1.0); MONOCYTES % (AUTO) 5.6 %; NEUTROPHILS # (AUTO) 3.8 10^3/uL (1.5-6.6); PLT - PLATELET COUNT 233 10^3/uL (130-450); RED BLOOD COUNT 4.15 10^6/uL (4.70-6.10)
[2023-10-18 08:26] LABS: ALBUMIN 4.7 g/dL (3.2-5.5); ALBUMIN/GLOBULIN RATIO 1.6 (1.0-2.2); BILIRUBIN,TOTAL 0.4 mg/dL (0.2-1.0); CALCIUM 10.4 mg/dL (8.5-10.3); CREATININE 0.9 mg/dL (0.6-1.3); POTASSIUM 3.7 mmol/L (3.5-4.5); TOTAL PROTEIN 7.6 g/dL (6.4-8.9)
[2023-10-18] MEDS: KETAMINE 500 MG/10 ML VIAL IM STA (08:46)
[2023-10-18] MEDS: BACITRACIN ZINC OINT 1 PACKET TOP STA (09:25)
--- NOTE | 2023-10-18 09:34 | CT Report ---
PROCEDURE: Cervical Spine WO INDICATIONS: head injury/severe autism TECHNIQUE: Noncontrast 3 mm thick sections acquired from the skull base to the T4 level. Sagittal and coronal r eformats were then constructed. For radiation dose reduction, the following was used: automated exp osure control, adjustment of mA and/or kV according to patient size. COMPARISON: CT of the cervical spine dated 07/26/2020 FINDINGS: Image quality: Excellent. Bones: No fractures or dislocations. Visualized superior ribs are intact. Soft tissues: Prevertebral soft tissues are normal in thickness. No paravertebral hematomas. No ap ical pneumothoraces. IMPRESSION: No acute, displaced fracture or traumatic subluxation. Reviewed by: Rosa Amaral MD on 10/18/2023 9:32 AM PDT Approved by: Rosa Amaral MD on 10/18/2023 9:32 AM PDT Station ID: [id number]
--- NOTE | 2023-10-18 09:41 | CT Report ---
PROCEDURE: Head WO INDICATIONS: head injury/severe autism and dev delay TECHNIQUE: Noncontrast 4.5 mm thick angled axial sections acquired from the foramen magnum to the vertex. For r adiation dose reduction, the following was used: automated exposure control, adjustment of mA and/or kV according to patient size. COMPARISON: Noncontrast CT of the head dated 07/26/2020 FINDINGS: Image quality: Excellent. CSF spaces: Basal cisterns are patent. No extra-axial fluid collections. Porencephaly redemonstrate d. Brain: Congenital malformation redemonstrated. No midline shift. No parenchymal hemorrhage. Skull and face: Calvarium and visualized facial bones are intact, without suspicious lesions. Sinuses: Visualized sinuses and mastoids are clear. IMPRESSION: No acute intracranial pathology. Intracranial congenital malformation redemonstrated. Reviewed by: Rosa Amaral MD on 10/18/2023 9:40 AM PDT Approved by: Rosa Amaral MD on 10/18/2023 9:40 AM PDT Station ID: [id number]
--- NOTE | 2023-10-18 09:48 | XRAY Report ---
PROCEDURE: Shoulder 2+V RT INDICATIONS: pain after seizure TECHNIQUE: 3 views of the shoulder were acquired. COMPARISON: None. FINDINGS: Bones: No fractures or dislocations. No suspicious bony lesions. Visualized ribs appear intact. Soft tissues: No suspicious soft tissue calcifications. The visualized lungs are within normal limi ts. IMPRESSION: No acute bony abnormality. If pain persists with conservative management, consider repeat radiographs in 10-14 days or cross-sectional imaging. Reviewed by: Rosa Amaral MD on 10/18/2023 9:47 AM PDT Approved by: Rosa Amaral MD on 10/18/2023 9:47 AM PDT Station ID: [id number]
[2023-10-18] MEDS: lamoTRIgine 100 MG TABLET PO STA ×2 (10:37→11:02)
[2023-10-18] MEDS: LORazepam 2 MG/ML VIAL IVP STA (10:42)
[2023-10-18] MEDS: carBAMazepine 200 MG TABLET PO STA (11:02)
[2023-10-18 11:24] LABS: CARBAMAZEPINE (TEGRETOL) 7.7 ug/mL
[2023-10-18] MEDS: levETIRAcetam INJ 1,000 MG in SODIUM CHLORIDE 0.9% 100ML 100 ML IV STA (11:24)
--- NOTE | 2023-10-18 11:29 | ED Physician Documentation ---
PD HPI SEIZURE - Stated complaint Stated Complaint: SZ - Chief complaint Chief Complaint: Neuro - History obtained from History obtained from: Caregiver - Additional information Additional information: Patient is a 37-year-old male with a history of autism, severe developmental delay, known seizure disorder presenting with multiple seizures this morning. Yesterday he was exhibiting increased self injury behavior.He was reportedly banging his head numerous times against the wall which he does have a history of doing. He is currently back at his baseline. 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 No recent illness. No vomiting or diarrhea. No fevers.He was reportedly not moving his right arm as much this morning which also concerned Staff at his adult family home. Patient is not able to provide any meaningful history. Review of Systems Unable to obtain: Other (Developmental delay, autism) PD PAST MEDICAL HISTORY - Past Medical History Past Medical History: Yes Cardiovascular: None Respiratory: None Neuro: Head injury, Seizure disorder Endocrine/Autoimmune: None GI: Hemorrhoids : None HEENT: None Psych: Anxiety, Other Musculoskeletal: None Derm: None - Past Surgical History Past Surgical History: Yes - Present Medications Home Medications: Ambulatory Orders Medication Instructions Recorded Confirmed Fluticasone [Flonase] 1 spray TAI PRN PRN 11/10/13 10/18/23 Guar Gum [Benefiber] 1 tbs PO DAILY 11/10/13 10/18/23 Multivit-Min/Ferrous Sulfate 1 tab PO DAILY PM 11/10/13 10/18/23 [Multilex Tablet] Ondansetron Odt [Zofran] 4 mg TL Q6H PRN #10 tab 07/26/20 10/18/23 Carbamazepine [Equetro] 300 mg PO DAILY 08/23/23 10/18/23 LORazepam [Ativan] 0.5 mg PO PRN PRN 08/23/23 10/18/23 QUEtiapine [SEROquel] 100 mg PO DAILY 08/23/23 10/18/23 Quetiapine Fumarate [Seroquel] 150 mg PO DAILY PM 08/23/23 10/18/23 carBAMazepine [Carbamazepine ER] 200 mg PO QPM 08/23/23 10/18/23 clonazePAM [Clonazepam] 0.5 mg PO BID 08/23/23 10/18/23 lamoTRIgine [Lamictal Xr] 25 mg PO BID 08/23/23 10/18/23 Cholecalciferol (Vitamin D3) 100 mcg PO DAILY 10/18/23 10/18/23 [Vitamin D3] Oxymetazoline HCl [Afrin] 1 spray NS BID PRN 10/18/23 10/18/23 lamoTRIgine [LaMICtal] 100 mg PO BID 10/18/23 10/18/23 polyethylene glycoL 3350 [Miralax] 17 gm PO Q2D 10/18/23 10/18/23 - Allergies Allergies/Adverse Reactions: Allergies Allergy/AdvReac Type Severity Reaction Status Date / Time No Known Drug Allergies Allergy Verified 10/18/23 07:41 - Social History Does the pt smoke?: No Smoking Status: Never smoker Does the pt drink ETOH?: No Does the pt have substance abuse?: No - Immunizations Immunizations are current?: Yes - POLST Patient has POLST: No PD ED PE NORMAL - General General: Other (Alert to his baseline, no distress) - HEENT HEENT: PERRL, EOMI, Other (Superficial wounds to forehead, No abnormal drainage, swelling) - Neck Neck: Supple, no meningeal sign, No bony TTP - Cardiac Cardiac: RRR, Strong equal pulses - Respiratory Respiratory: No respiratory distress, Clear bilaterally - Abdomen Abdomen: Normal bowel sounds, Soft, Non tender, Non distended - Derm Derm: Warm and dry - Extremities Extremities: No deformity, Other (Moves bilateral upper extremities) - Neuro Neuro: No motor deficit, Other (Speech is at baseline for patient). No: Alert and oriented X 3 (Alert and oriented to baseline) Results - Vitals Vitals: Vital Signs - 24 hr 10/18/23 10/18/23 10/18/23 07:31 08:40 08:41 Temperature 36.4 C L 37.3 C 37.3 C Heart Rate 90 111 H 111 H Respiratory 16 21 21 Rate Blood Pressure 133/100 H 153/96 H 153/96 H O2 Saturation 98 97 97 If not protocol 0 : Oxygen Flow, liters/minute 10/18/23 10/18/23 10/18/23 09:00 09:05 09:10 Temperature 37.1 C 37.1 C 910 C H Heart Rate 97 107 H 99 Respiratory 16 18 14 Rate Blood Pressure 153/96 H 142/102 H 167/107 H O2 Saturation 98 99 98 If not protocol : Oxygen Flow, liters/minute 10/18/23 10/18/23 10/18/23 09:21 09:30 09:40 Temperature 36.9 C 36.8 C Heart Rate 88 96 103 H Respiratory 17 15 20 Rate Blood Pressure 160/100 H 151/89 H 157/88 H O2 Saturation 96 100 97 If not protocol : Oxygen Flow, liters/minute 10/18/23 10/18/23 10/18/23 09:45 09:53 11:04 Temperature 36.8 C Heart Rate 91 68 96 Respiratory 17 22 17 Rate Blood Pressure 159/93 H 127/87 H O2 Saturation 96 96 If not protocol 0 : Oxygen Flow, liters/minute 10/18/23 10/18/23 13:00 14:21 Temperature 36.8 C 36.8 C Heart Rate 90 88 Respiratory 18 16 Rate Blood Pressure 128/88 H 124/86 H O2 Saturation 98 100 If not protocol : Oxygen Flow, liters/minute Oxygen O2 Source Room air - Labs Labs: Laboratory Tests 10/18/23 10/18/23 10/18/23 08:02 08:02 08:02 WBC 5.0 RBC 4.15 L Hgb 12.7 L Hct 39.2 L MCV 94.5 H MCH 30.6 MCHC 32.4 RDW 12.0 Plt Count 233 MPV 9.7 Neut # (Auto) 3.8 Lymph # (Auto) 0.9 L [place] # (Auto) 0.3 Eos # (Auto) 0.0 Baso # (Auto) 0.0 Absolute Nucleated RBC 0.00 Nucleated RBC % 0.0 Sodium 139 Potassium 3.7 Chloride 104 Carbon Dioxide 28 Anion Gap 7.0 BUN 9 Creatinine 0.9 Estimated GFR (MDRD) 95 Glucose 99 Calcium 10.4 H Total Bilirubin 0.4 AST 18 ALT 20 Alkaline Phosphatase 102 Total Protein 7.6 Albumin 4.7 Globulin 2.9 Albumin/Globulin Ratio 1.6 Lipase 23 Urine Color Urine Clarity Urine pH Ur Specific [place] Urine Protein Urine Glucose (UA) Urine Ketones Urine Occult Blood Urine Nitrite Urine Bilirubin Urine Urobilinogen Ur Leukocyte Esterase Urine RBC Urine WBC Ur Squamous Epith Cells Amorphous Sediment Urine Bacteria Ur Microscopic Review Urine Culture Comments Last Dose Date 5/13/24 Last Dose Time 1800 Carbamazepine 7.7 05/14/24 12:05 WBC RBC Hgb Hct MCV MCH MCHC RDW Plt Count MPV Neut # (Auto) Lymph # (Auto) [place] # (Auto) Eos # (Auto) Baso # (Auto) Absolute Nucleated RBC Nucleated RBC % Sodium Potassium Chloride Carbon Dioxide Anion Gap BUN Creatinine Estimated GFR (MDRD) Glucose Calcium Total Bilirubin AST ALT Alkaline Phosphatase Total Protein Albumin Globulin Albumin/Globulin Ratio Lipase Urine Color YELLOW Urine Clarity SL. CLOUDY Urine pH 8.5 H Ur Specific [place] 1.015 Urine Protein NEGATIVE Urine Glucose (UA) NEGATIVE Urine Ketones NEGATIVE Urine Occult Blood NEGATIVE Urine Nitrite NEGATIVE Urine Bilirubin NEGATIVE Urine Urobilinogen 0.2 (NORMAL) Ur Leukocyte Esterase NEGATIVE Urine RBC 0-5 Urine WBC 4-5 Ur Squamous Epith Cells NONE SEEN Amorphous Sediment Rare Urine Bacteria Rare Ur Microscopic Review INDICATED Urine Culture Comments NOT INDICATED Last Dose Date Last Dose Time Carbamazepine PD Medical Decision Making - ED course Complexity details: reviewed results, re-evaluated patient, d/w family (Caregivers/medical POA) ED course: Patient is a 37-year-old male with a history of autism, severe developmental delay presenting for evaluation after having several seizure episodes this morning. Patient does have a known history of seizures and has been compliant with medications. He has had escalation in self injury type behavior and was hitting his head numerous times yesterday against a wall. He did allow for labs to be drawn but an order for CT scan of his head to be performed as well as evaluation of his wounds he did require procedural sedation. Medical POA's have been at the bedside and gave consent for IM ketamine.CT head and C-spine were obtained and without significant findings. Wounds to the forehead were cleaned, bacitracin and bandage applied. No wounds that require suture repair. Labs including CBC, chemistries, urinalysis reviewed and without significant find ings. Patient did have a seizure episode here and I did review the presentation with his neurologist, Dr. Ernst. Patient was given a dose of Ativan with a seizure. Dr. Carlos recommends loading with 1 g of Keppra and then continuing on his home medications while levels are pending and he will follow-up on the levels.No signs of infection. No signs of meningitis. Patient was allowed to wake up and did require a dose of Zofran as he was coming out of the ketamine.He returned to his baseline and caregiver as well as medical POA at the bedside both are comfortable with plan for discharge. They request ambulance transport back Given that at times he can have some aggressive behaviors. They are aware that he needs close follow-up with his neurologist. 1103 - D/W Dr. Ernst (neurology). Recommends getting levels for Lamictal and carbamazepine. Recommends giving a dose of IV Keppra 1 g now. No need for additional doses for home.Continue on usual home doses of Lamictal and carbamazepine. Departure - Departure Disposition: Home, Self Care Clinical Impression: Breakthrough seizure, Open forehead wound, Head injury, Self-harming behavior Condition: Stable Instructions: ED Seizure Recurrent, ED Wound Care Comments: Prem was evaluated after having multiple seizures this morning. He did receive medication for sedation so that we were able to properly evaluate him. His blood test do not show any abnormalities including a urine test which is negative for infection. The CT scan of his head as well as his cervical spine do not show any injuries from him hitting his head. I did speak with his neurologist, Dr. Ernst and we did give him an IV dose of an antiseizure medicine this morning. He should continue with his Lamictal and carbamazepine. He should have close follow-up with his neurologist. Please keep the wounds on his forehead clean and dry. You can apply bacitracin to the site. Return with any concerns such as infection. Return to the emergency department with any worsening symptoms. Forms: PCP List Discharge Date/Time: 10/18/23 14:21
[2023-10-18 12:17] LABS: BILIRUBIN,URINE NEGATIVE (NEGATIVE); GLUCOSE, URINE (UA) NEGATIVE (NEGATIVE); KETONES,URINE (UA) NEGATIVE (NEGATIVE); LEUKOCYTE ESTERASE, URINE NEGATIVE (NEGATIVE); NITRITE,URINE NEGATIVE (NEGATIVE); OCCULT BLOOD,URINE NEGATIVE (NEGATIVE); PH,URINE 8.5 PH (5.0-7.5); PROTEIN,URINE NEGATIVE (NEGATIVE); UROBILINOGEN,URINE 0.2 (NORMAL) E.U./dL (NORMAL)
[2023-10-18 12:18] LABS: CLARITY,URINE SL. CLOUDY (CLEAR)
[2023-10-18 12:27] LABS: AMORPHOUS SEDIMENT,UR Rare /LPF; BACTERIA,URINE Rare /HPF (None Seen); RBC,URINE 0-5 /HPF (0-5); SQUAMOUS EPITHELIAL CELL,UR NONE SEEN (<= Few)
[2023-10-18] MEDS: ONDANSETRON ODT 4 MG TABLET TL STA (13:44)
[2023-10-18] MEDS: ONDANSETRON 4 MG/2 ML VIAL IVP STA (13:45)
[2023-10-18 14:29] VITALS: BP 124/86; O2SAT 100
== END 2023-10-18 14:21 | disposition home or self-care (01) ==
LOC: EDUNIT# → ED 07:19
DX: G40.909 Epilepsy, unspecified, not intractable, without status epilepticus (principal); S01.81XA Laceration without foreign body of other part of head, initial encounter; W22.01XA Walked into wall, initial encounter; R45.88 Nonsuicidal self-harm; F84.0 Autistic disorder; R62.50 Unspecified lack of expected normal physiological development in childhood; Z79.899 Other long term (current) drug therapy
CPT/HCPCS: 36415; 70450; 72125; 73030; 80053; 80156; 80175; 81001; 83690; 85025; 96365; 96375; 99285; A9270; J2060; P9612; Q0162; 51701; 81003; 87086

== ENCOUNTER 2023-10-18 14:18 | Outpatient (CLI) | payer MEDICARE, MEDICAID | END 2023-10-18 14:19 | disposition home or self-care (01) | LOC: EMS 14:18 | PROVIDERS: ATTEND Emergency Medicine | DX: R56.9 Unspecified convulsions (principal); R62.50 Unspecified lack of expected normal physiological development in childhood | CPT/HCPCS: A0425; A0428 ==

== ENCOUNTER 2024-01-08 18:18 | Outpatient (CLI) | payer MEDICARE, MEDICAID | END 2024-01-08 23:59 | disposition critical access hospital (66) | LOC: EMS 18:18 | DX: R56.9 Unspecified convulsions (principal) | CPT/HCPCS: A0425; A0429 ==

== ENCOUNTER 2024-01-08 18:38 | Emergency (ER) | payer MEDICARE, MEDICAID ==
[2024-01-08] MEDS: LORazepam 2 MG/ML VIAL IM STA (18:50)
--- NOTE | 2024-01-08 18:53 | ED Physician Documentation ---
PD HPI SEIZURE - Stated complaint Stated Complaint: SZ - Chief complaint Chief Complaint: Neuro - History obtained from History obtained from: EMS - History of Present Illness History of seizures: Known seizure disorder - Additional information Additional information: Patient is a 38-year-old male who has severe autism and developmental delay. Unable to give any history. Longstanding history of seizures. Had a seizure today. His senior care staff reports that he missed a dose of his medication. EMS does not know what medications he is supposed to be on. They did not bring a medication list with them from the senior care. There is no other history available at this time. Review of Systems Unable to obtain: Other (Severe developmental delay and autism) PD PAST MEDICAL HISTORY - Past Medical History Cardiovascular: None Respiratory: None Neuro: Head injury, Seizure disorder Endocrine/Autoimmune: None GI: Hemorrhoids : None HEENT: None Psych: Anxiety, Other Musculoskeletal: None Derm: None - Past Surgical History Past Surgical History: Yes - Present Medications Home Medications: Ambulatory Orders Medication Instructions Recorded Confirmed Fluticasone [Flonase] 1 spray TAI PRN PRN 11/10/13 10/18/23 Guar Gum [Benefiber] 1 tbs PO DAILY 11/10/13 10/18/23 Multivit-Min/Ferrous Sulfate 1 tab PO DAILY PM 11/10/13 10/18/23 [Multilex Tablet] Ondansetron Odt [Zofran] 4 mg TL Q6H PRN #10 tab 07/26/20 10/18/23 Carbamazepine [Equetro] 300 mg PO DAILY 08/23/23 10/18/23 LORazepam [Ativan] 0.5 mg PO PRN PRN 08/23/23 10/18/23 QUEtiapine [SEROquel] 100 mg PO DAILY 08/23/23 10/18/23 Quetiapine Fumarate [Seroquel] 150 mg PO DAILY PM 08/23/23 10/18/23 carBAMazepine [Carbamazepine ER] 200 mg PO QPM 08/23/23 10/18/23 clonazePAM [Clonazepam] 0.5 mg PO BID 08/23/23 10/18/23 lamoTRIgine [Lamictal Xr] 25 mg PO BID 08/23/23 10/18/23 Cholecalciferol (Vitamin D3) 100 mcg PO DAILY 10/18/23 10/18/23 [Vitamin D3] Oxymetazoline HCl [Afrin] 1 spray NS BID PRN 10/18/23 10/18/23 lamoTRIgine [LaMICtal] 100 mg PO BID 10/18/23 10/18/23 polyethylene glycoL 3350 [Miralax] 17 gm PO Q2D 10/18/23 10/18/23 - Allergies Allergies/Adverse Reactions: Allergies Allergy/AdvReac Type Severity Reaction Status Date / Time No Known Drug Allergies Allergy Verified 01/08/24 18:46 - Social History Does the pt smoke?: No Smoking Status: Never smoker Does the pt drink ETOH?: No Does the pt have substance abuse?: No - Immunizations Immunizations are current?: Yes - POLST Patient has POLST: No PD ED PE NORMAL - Vitals Vital signs reviewed: Yes - General General: No acute distress, Well developed/nourished, Other (Alert, at his normal baseline) - HEENT HEENT: Atraumatic, Moist mucous membranes - Neck Neck: Supple, no meningeal sign - Cardiac Cardiac: RRR, Strong equal pulses - Respiratory Respiratory: No respiratory distress, Clear bilaterally - Abdomen Abdomen: Soft, Non tender, Non distended - Derm Derm: Warm and dry - Extremities Extremities: Other (no deformity.) - Neuro Neuro: Other (alert) Results - Vitals Vitals: Vital Signs - 24 hr 01/08/24 01/08/24 18:47 19:59 Temperature 37 C Heart Rate 103 H 101 H Respiratory 17 16 Rate Blood Pressure 129/88 H 168/101 H O2 Saturation 100 97 Oxygen O2 Source Room air PD Medical Decision Making - ED course Complexity details: re-evaluated patient, considered differential ED course: Patient is asymptomatic here. He was given 2 mg of lorazepam IM. No further seizure activity. His caregiver is here with him. Recommend that they continue his medications as prescribed. Recommend that they follow-up with his primary care provider and/or neurologist for further care as needed. They did not bring a list of his medications with him. For her I do not know which medication he did not receive today, the caregiver thinks it may have been clonazepam. If that is the case the lorazepam should cover this. No injuries. No emergency medical condition at this time. This document was made in part using voice recognition software. While efforts are made to proofread this document, sound alike and grammatical errors may occur. Departure - Departure Disposition: 01 Home, Self Care Clinical Impression: Breakthrough seizure Condition: Good Instructions: ED Seizure Recurrent Follow-Up: your,doctor tomorrow [Other] Comments: Please follow up with his doctor for further care. He was given lorazepam here tonight, this will help to control his seizures. Please continue his current medications as prescribed at home. Forms: PCP List Discharge Date/Time: 01/08/24 19:59
[2024-01-08 20:05] VITALS: BP 168/101; O2SAT 97
== END 2024-01-08 19:59 | disposition home or self-care (01) ==
LOC: EDUNIT# → ED 18:38
DX: G40.909 Epilepsy, unspecified, not intractable, without status epilepticus (principal); F84.0 Autistic disorder; R62.50 Unspecified lack of expected normal physiological development in childhood; Z79.899 Other long term (current) drug therapy
CPT/HCPCS: 96372; 99283; J2060

== ENCOUNTER 2024-01-19 07:52 | Outpatient (CLI) | payer MEDICARE, MEDICAID | END 2024-01-19 07:53 | disposition home or self-care (01) | LOC: LAB.N 07:52 | PROVIDERS: ATTEND Nurse Practitioner Family | DX: Z02.89 Encounter for other administrative examinations (principal); R56.9 Unspecified convulsions | CPT/HCPCS: 36415; 80175; 81599 ==

== ENCOUNTER 2024-02-12 07:16 | Outpatient (CLI) | payer MEDICARE, MEDICAID | END 2024-02-12 23:59 | disposition EMS.NT | LOC: EMS 07:16 | DX: Z03.89 Encounter for observation for other suspected diseases and conditions ruled out (principal) ==